=== PATIENT | male | born 1935 | race Caucasian/White ===

== ENCOUNTER 2017-06-20 10:08 | Observation (INO) ==
--- NOTE | 2017-06-20 10:31 | Emergency Department Note ---
Disposition Clinical Impression: Necrotic eschar Cellulitis Qualifiers: Site of cellulitis: unspecified site Qualified Code(s): L03.90 - Cellulitis, unspecified Disposition: Still a Patient Condition: Fair Time of Disposition: 11:10 Skin/Abscess/FB HPI Chief complaint: ED Skin/Abscess/Foreign Body Stated complaint: wound care Time Seen by Provider: 06/20/17 10:16 Source: patient, family Limitations: no limitations Nursing Notes Reviewed: Yes Vital Signs Reviewed: Yes HPI Narrative: Nontoxic-appearing 82-year-old male presents for evaluation of a wound to the right groin. The area began as a "small lump". It has since progressed into a bleeding ulceration with surrounding cellulitis. He has seen his primary care provider, and has recently finished a course of oral antibiotics. He states that the area has worsened in size and continues to bleed. He is on Coumadin for atrial fibrillation. He denies any associated nausea, vomiting, fever, chills, abdominal pain, urinary symptoms, or altered mentation. Pt Subjective Complaint: other Onset (ago): month(s) (2) Severity scale (1-10): 3 Quality: dull Improves with: none Worsens with: palpation Context: none Associated symptoms: Reports: denies other symptoms Treatments prior to arrival: antibiotic Home Medications Medication Instructions Recorded Confirmed Lansoprazole [Prevacid] 30 mg PO DAILY #0 01/17/16 06/20/17 Niacin [Niacor] 1,500 mg PO BID 01/17/16 06/20/17 Warfarin [Coumadin] 5 mg PO MOWE 01/17/16 06/20/17 Finasteride [Proscar] 5 mg PO DAILY 06/20/17 06/20/17 Warfarin [Coumadin] 2.5 mg PO SUTUTHFRSA 06/20/17 06/20/17 Previous Rx's Medication Instructions Recorded Aspirin 81 mg PO DAILY #30 tab.chew 08/16/15 Lisinopril [Zestril] 5 mg PO DAILY #30 tablet 08/16/15 Nitroglycerin 0.4 mg SL Q5MIN PRN #30 tab.subl 01/18/16 Allergies Allergy/AdvReac Type Severity Reaction Status Date / Time Penicillins Allergy Hives Verified 10/11/16 21:42 All systems ED: reviewed and negative except as stated. Constitutional: Denies: fever, chills, weakness, weight change Eyes: Denies: eye pain, eye discharge, vision change ENT ED: Denies: ear pain, throat pain, dental pain, hearing loss, epistaxis, congestion, dysphagia Cardiovascular: Denies: chest pain, palpitations, dyspnea on exertion, edema, syncope Respiratory: Denies: cough, dyspnea, wheezes, hemoptysis, stridor Gastrointestinal: Denies: abdominal pain, nausea, vomiting, diarrhea, constipation, hematemesis, melena, hematochezia Genitourinary: Denies: urgency, dysuria, frequency, hematuria Musculoskeletal: Denies: back pain, neck pain, arthralgia, myalgia Integumentary: Reports: as per HPI, other (bleeding wound near my groin). Denies: rash, abrasion, lesions Neurological: Denies: headache, weakness, numbness, paresthesias, confusion, abnormal gait, vertigo Psychiatric: Denies: anxiety, depression, suicidal thoughts, homicidal thoughts , auditory hallucinations, visual hallucinations Endocrine: Denies: fatigue Hematological/Lymphatic: Denies: easy bleeding, easy bruising Allergic/Immunologic: Denies: facial swelling, urticaria Past Medical History - Past Medical History Attestation: Yes The following information was validated with the patient. Source: patient, nursing notes reviewed Medical history: Reports: atrial fibrillation, coronary artery disease, GERD, hypertension, other Surgical history: Reports: angioplasty/stent, orthopedic, other, other Psychiatric history: Reports: no psych history - Social History Smoking Status: Never smoker Smokeless Tobacco Status: No Alcohol use: Reports: none Drug use: Reports: none Physical Exam - General Limitations: no limitations General appearance: alert - Head Head exam: atraumatic, normocephalic, normal inspection - Eye Eye exam: Present: normal appearance, PERRL, EOMI. Absent: nystagmus - ENT ENT exam: mucous membranes moist - Neck Neck exam: Present: normal inspection, full ROM, trachea midline - Chest Chest inspection: Present: normal inspection, symmetric chest wall rise - Abdominal Exam Abdominal exam: Present: soft, Non-Tender, normal bowel sounds - Male image: 1 - Approximate 2.5 cm by 2.0 centimeter ulceration with surrounding cellulitis. The area does persistently exsanguinate small amounts of blood. No appreciable underlying fluctuance. No purulent discharge or drainage. - Extremities Exam Extremities exam: Present: normal inspection, full ROM. Absent: tenderness, pedal edema - Neurological Exam Neurological exam: Present: alert, oriented X3 - Psychiatric Psychiatric exam: Present: normal affect, normal mood - Skin Skin exam: Present: warm, dry, normal color Course - Reevaluation(s) Reevaluation #1: Seen in the ED by Dr. Willoughby and he requests the patient be admitted to the hospitalist service, IV antibiotics, reversal of the INR and ultimately will take to surgery for debridement. Time: 14:10 Reevaluation #2: D/W Hospitalist to admit Time: 15:20 Vital Signs Temperature 97.5 F L 06/20/17 10:11 Pulse Rate 84 06/20/17 10:11 Respiratory Rate 18 06/20/17 10:11 Blood Pressure 147/80 06/20/17 10:11 O2 Sat by Pulse Oximetry 99 06/20/17 10:11 Temperature 97.8 F 06/20/17 16:35 Pulse Rate 84 06/20/17 16:35 Respiratory Rate 14 06/20/17 16:35 Blood Pressure 144/87 06/20/17 16:35 O2 Sat by Pulse Oximetry 99 06/20/17 16:35 Oxygen Delivery Oxygen Delivery Room Air Skin/Abscess/Foreign Body - Medical Records Medical records reviewed: Yes I reviewed the patient's medical records. - Lab Data Result diagrams: 06/20/17 10:40 06/20/17 10:40 Lab Results 06/20/17 06/20/17 06/20/17 Range/Units 10:40 10:40 10:40 WBC 9.0 (4.3-11.1) K/mcL RBC 4.06 L (4.19-5.50) M/mcL Hgb 12.7 L (12.9-16.9) g/dL Hct 38.4 (37.5-50.1) % MCV 94.6 (83.0-100.0) fL MCH 31.3 (28.0-33.3) pg MCHC 33.1 (31.6-35.5) g/dL RDW 15.1 H (11.5-14.5) % Plt Count 168 (140-400) K/mcL MPV 9.2 L (9.4-12.4) fL Immature Gran % 0.6 (0-4) % Seg Neutrophils % 57.4 % Lymphocytes % 34.8 % Monocytes % 5.8 % Eosinophils % 1.1 % Basophils % 0.3 % Neutrophils # 5.2 (1.6-8.9) K/mcL Lymphocytes # 3.1 (0.6-4.6) K/mcL Monocytes # 0.5 (0.0-1.3) K/mcL Eosinophils # 0.1 (0.0-0.6) K/mcL Basophils # 0.0 (0.0-0.2) K/mcL ESR 13 H (0-10) mm/hr PT (9.4-12.1) Seconds INR Sodium 132 L (136-145) mEq/L Potassium 4.0 (3.5-5.1) mEq/L Chloride 98 (98-107) mEq/L Carbon Dioxide 26 (23-29) mEq/L BUN 8 (8-23) mg/dL Creatinine 0.85 (0.70-1.30) mg/dL Est GFR ( Amer) > 60 (> 60) Est GFR (Non-Af Amer) > 60 (> 60) BUN/Creatinine Ratio 9 (6-26) Glucose 128 H (70-105) mg/dL Calculated Osmolality 274 L (280-300) Calcium 9.6 (8.6-10.3) mg/dL C-Reactive Protein 10 H (Less than 10) mg/L 06/20/17 Range/Units 10:40 WBC (4.3-11.1) K/mcL RBC (4.19-5.50) M/mcL Hgb (12.9-16.9) g/dL Hct (37.5-50.1) % MCV (83.0-100.0) fL MCH (28.0-33.3) pg MCHC (31.6-35.5) g/dL RDW (11.5-14.5) % Plt Count (140-400) K/mcL MPV (9.4-12.4) fL Immature Gran % (0-4) % Seg Neutrophils % % Lymphocytes % % Monocytes % % Eosinophils % % Basophils % % Neutrophils # (1.6-8.9) K/mcL Lymphocytes # (0.6-4.6) K/mcL Monocytes # (0.0-1.3) K/mcL Eosinophils # (0.0-0.6) K/mcL Basophils # (0.0-0.2) K/mcL ESR (0-10) mm/hr PT 45.9 H* (9.4-12.1) Seconds INR 4.1 Sodium (136-145) mEq/L Potassium (3.5-5.1) mEq/L Chloride (98-107) mEq/L Carbon Dioxide (23-29) mEq/L BUN (8-23) mg/dL Creatinine (0.70-1.30) mg/dL Est GFR ( Amer) (> 60) Est GFR (Non-Af Amer) (> 60) BUN/Creatinine Ratio (6-26) Glucose (70-105) mg/dL Calculated Osmolality (280-300) Calcium (8.6-10.3) mg/dL C-Reactive Protein (Less than 10) mg/L S.B.A.R. - S.B.A.R. Situation: Demographics, MOA Background: Presenting Complaint, Relevant PMH, Meds, & Allergies Assessment: Vital Signs, Course and respsone to treatment, Exam Concerns, Patient/Family Expectation, Pertinant Lab Results, Outstanding Labs Recommendation: Barrier(s) to disposition, Recommendation based on pending studies, treatments, or consults S.B.A.RLuiz Report Given to: Dr. Hendrickson SLuizBLuizABronson [facility] Time: 11:10 Attestation Statement - Attestation Attestation: I examined this patient and my medical decision-making was reviewed with the Nurse Practitioner. I agree with the documented findings, disposition and treatment plan as described except to the extent set forth below. 82-year-old male presents ED because of a lesion to his right groin. He has noticed this over the past 2 months and has been getting gradually bigger. He was recently put on a course of antibiotics per his primary care physician which she finished in the past 2 days without improvement. He is now more concerned that it may be cancer. He does have some pain in the region. No fevers. No flank or back pain. No urinary has not seen. No rectal pain. He is afebrile Abdomen soft and non-tender In the right pubic region there is a 2 cm x 3 cm skin lesion that has some small amount of active bleeding. Tissue appears to be necrotic. No palpable fluctuance. Mild tenderness to the inferior aspect of the lesion. CT imaging is negative for any deep tissue involvement. Labs unremarkable except for an INR 4.1. Discussed with Dr. Willoughby regarding the possible need for outpatient follow-up and debridement as well as possible biopsy. He will see him in the ED.
[2017-06-20 11:07] LABS: Basophils % 0.3 %; Eosinophils # 0.1 K/mcL (0.0-0.6); Eosinophils % 1.1 %; Hematocrit 38.4 % (37.5-50.1); Hemoglobin 12.7 g/dL (12.9-16.9); Immature Granulocytes % 0.6 % (0-4); Lymphocytes # 3.1 K/mcL (0.6-4.6); Lymphocytes % 34.8 %; Mean Corpuscular HGB Conc 33.1 g/dL (31.6-35.5); Mean Corpuscular Hemoglobin 31.3 pg (28.0-33.3); Mean Corpuscular Volume 94.6 fL (83.0-100.0); Mean Platelet Volume 9.2 fL (9.4-12.4); Monocytes # 0.5 K/mcL (0.0-1.3); Monocytes % 5.8 %; Neutrophils # 5.2 K/mcL (1.6-8.9); Platelet Count 168 K/mcL (140-400); Red Blood Count 4.06 M/mcL (4.19-5.50); Red Cell Distribution Width 15.1 % (11.5-14.5); Segmented Neutrophils % 57.4 %
[2017-06-20 11:22] LABS: BUN/Creatinine Ratio 9 (6-26); Blood Urea Nitrogen 8 mg/dL (8-23); C-Reactive Protein 10 mg/L (Less than 10); Calcium 9.6 mg/dL (8.6-10.3); Carbon Dioxide 26 mEq/L (23-29); Chloride 98 mEq/L (98-107); Glucose 128 mg/dL (70-105); Osmolality,Calculated 274 (280-300); Sodium 132 mEq/L (136-145); eGFR For African Americans > 60 (> 60); eGFR For Non-African Americans > 60 (> 60)
[2017-06-20 13:12] LABS: INR 4.1
[2017-06-20 13:20] LABS: Prothrombin Time 45.9 Seconds (9.4-12.1)
[2017-06-20] MEDS ORDERED: Clindamycin 600 MG/50 ML 600 MG/50 ML IV.SOLN IVPB ONE (14:10)
--- NOTE | 2017-06-20 16:53 | Internal Med History&Physical ---
Date of Encounter: 06/20/17 Time of Encounter: 16:51 Assessment and Plan (1) Anticoagulation excessive Current visit: Yes Status: Acute Patient is 4.1 l patient will be given Coumadin and fresh frozen plasma (2) HTN (hypertension) Current visit: No Status: Chronic Chronic well controlled Qualifiers: Hypertension type: essential hypertension Qualified Code(s): I10 - Essential (primary) hypertension (3) Atrial fibrillation Current visit: No Status: Chronic Chronic rate is well controlled patient is on Coumadin Qualifiers: Atrial fibrillation type: chronic Qualified Code(s): I48.2 - Chronic atrial fibrillation (4) Cellulitis Current visit: Yes Status: Acute Cellulitis of right groin area with necrotic area general general surgery consult Qualifiers: Site of cellulitis: unspecified site Qualified Code(s): L03.90 - Cellulitis , unspecified (5) HTN (hypertension) Current visit: Yes Status: Chronic Qualifiers: Hypertension type: essential hypertension Qualified Code(s): I10 - Essential (primary) hypertension Internal Medicine - H&P: HPI Chief complaint: right groin cellulitis Admitted From: Emergency Dept Plans for Post Hospital Care: Home History of present illness: Mr. Landry is a 82 year old male Patient with history of hypertension, chronic atrial fibrillation on Coumadin, CAD prior stent, high cholesterol, DJD, GERD, Caldwell esophagus and diastolic heart failure and TIA. Patient presented emergency room with right groin wound which is ulcerated necrotic with surrounding cellulitis patient had outpatient treatment with a course of antibiotics by primary physician but getting worse and continued to bleed and he come into the emergency room. Emergency room hemostasis was achieved and dressing applied general surgery Dr. Courtney has been consulted patient will be placed on antibiotic and given vitamin K and fresh frozen plasma and possible OR tomorrow. Past Med Surg Social Fam HX - Past Medical History Medical history: atrial fibrillation, coronary artery disease, GERD, hypertension, other Psychiatric history: no psych history - Past Surgical History Surgical History: angioplasty/stent, orthopedic, other, other - Social History Smoking Status: Former smoker Smokeless Tobacco Status: No Alcohol use: none Drug use: none - Family History Mother Living Status: Hx Family Cardiac Disorders: Yes (CHF) Father Living Status: Internal Medicine - H&P: Meds Aspirin 81 mg PO DAILY #30 tab.chew 04/14/16 [Rx] Lisinopril [Zestril] 5 mg PO DAILY #30 tablet 08/16/15 [Rx] Lansoprazole [Prevacid] 30 mg PO DAILY #0 01/17/16 [History] Niacin [Niacor] 1,500 mg PO BID 01/17/16 [History] Warfarin [Coumadin] 5 mg PO MOWE 01/17/16 [History] Nitroglycerin 0.4 mg SL Q5MIN PRN #30 tab.subl 01/18/16 [Rx] Finasteride [Proscar] 5 mg PO DAILY 06/20/17 [History] Warfarin [Coumadin] 2.5 mg PO SUTUTHFRSA 06/20/17 [History] 3 Allergy/AdvReac Type Severity Reaction Status Date / Time Penicillins Allergy Hives Verified 10/11/16 21:42 All Systems PM: A 10-system review of systems was performed and is negative for pertinent findings except as documented above in the HPI. - Constitutional Constitutional: no chills, no fever(s), no night sweats - EENT Eyes: no change in vision, no discharge, no pain, no photophobia Ears: no ear discharge, no ear pain, no tinnitus Nose, mouth and throat: no dysphagia, no nasal discharge, no neck pain, no sore throat - Cardiovascular Cardiovascular ROS IM: no chest pain, no diaphoresis, no dyspnea, no lightheadedness, no palpitations, no syncope - Respiratory Respiratory: no cough, no dyspnea, no wheezing, no excessive phlegm production - Gastrointestinal Gastrointestinal: no abdominal pain, no diarrhea, no hematemesis, no hematochezia, no melena, no nausea, no vomiting - Constitutional Vitals: Temp Pulse Resp BP Pulse Ox 97.8 F 84 14 144/87 99 06/20/17 16:35 06/20/17 16:35 06/20/17 16:35 06/20/17 16:35 06/20/17 16:35 - Head Head exam: Present: atraumatic, normocephalic - Eye Eye exam: Present: PERRL, conjuntiva pink, sclera anicteric Pupils: Present: PERRL - Neck Neck exam general surgery: Present: supple, trachea midline. Absent: lymphadenopathy - Respiratory Respiratory exam: Present: CTAB. Absent: accessory muscle use, rales, rhonchi, wheezes - Cardiovascular Cardiovascular exam: Present: RRR, +S1, +S2. Absent: diastolic murmur, gallop, rubs, systolic murmur - GI/Abdominal GI/Abdominal exam: Present: normal bowel sounds, soft, no peritoneal signs. Absent: distended, tenderness - Skin Additional comments: right groin cellulitis with necrotic area and bleeding Internal Med - H&P Results - Labs CBC & Chem 7: 06/20/17 10:40 06/20/17 10:40
[2017-06-20] MEDS ORDERED: Naloxone 0.4 MG/ML INJ IVP PRN (17:01)
[2017-06-20] MEDS ORDERED: Nitroglycerin 0.4 MG TAB.SUBL SL PRN (17:03)
--- NOTE | 2017-06-20 17:25 | General Surgery Consult Note ---
<DanilopatSocorro pascla H - Last Filed: 06/20/17 17:20> Date of Encounter: 06/20/17 Time of Encounter: 16:00 Assessment and Plan (1) Wound of right groin Current Visit: Yes Status: Acute Patient with a wound to his right groin. -Admit to the hospitalist for management of multiple medical comorbidities. -IV antibiotics. Penicillin allergy. Will use clindamycin. -Recommend reversal of Coumadin (INR is 4.1) with 2 units of fresh frozen plasma and 10 mg of vitamin K. -Patient to be made nothing by mouth at midnight. -Possibly to the OR tomorrow for debridement. Qualifiers: Encounter type: initial encounter Qualified Code(s): S31.109A - Unspecified open wound of abdominal wall, unspecified quadrant without penetration into peritoneal cavity, initial encounter (2) Cellulitis Current Visit: Yes Status: Acute Patient getting IV antibiotic coverage with clindamycin as he has a penicillin allergy. Qualifiers: Site of cellulitis: unspecified site Qualified Code(s): L03.90 - Cellulitis , unspecified History of Present Illness Consult date: 06/20/17 Reason for consult: wound care Requesting physician: Maxi Hendrickson History of present illness: Mr. Woodruff is an 82-year-old male with past medical history hypertension, chronic atrial fibrillation on Coumadin, CAD SP stent, HLD, GERD, Caldwell's esophagus, and diastolic heart failure. Patient presented to a [facility] on 06/20/2017 with a wound in his right groin area. Patient states this wound began in February or March of 2017. He states it progressed since that time. He saw his outpatient primary care provider Dr. Dorantes who debrided it in the office and gave him 10 days of oral antibiotics. He states the wound did not improve. The patient states the central area of the wound which appeared to him as a scab possibly started 2 weeks ago. He states this area is very tender. He denies any fevers, chills, or night sweats. He denies any chest pain, shortness of breath, diaphoresis, or nausea. He denies any nausea, vomiting, or diarrhea. Denies any dysuria or hematuria. Past Med Surg Social Fam HX - Past Medical History Source: patient, old records reviewed, obtained from family Medical history: atrial fibrillation, coronary artery disease, GERD, hypertension, other Psychiatric history: no psych history - Past Surgical History Surgical History: angioplasty/stent, orthopedic, other, other - Social History Smoking Status: Former smoker Smokeless Tobacco Status: No Alcohol use: none Drug use: none - Family History Mother Living Status: Hx Family Cardiac Disorders: Yes (CHF) Father Living Status: Medications and Allergies Aspirin 81 mg PO DAILY #30 tab.chew 08/16/15 [Rx] Lisinopril [Zestril] 5 mg PO DAILY #30 tablet 08/16/15 [Rx] Lansoprazole [Prevacid] 30 mg PO DAILY #0 01/17/16 [History] Niacin [Niacor] 1,500 mg PO BID 01/17/16 [History] Warfarin [Coumadin] 5 mg PO MOWE 01/17/16 [History] Nitroglycerin 0.4 mg SL Q5MIN PRN #30 tab.subl 01/18/16 [Rx] Finasteride [Proscar] 5 mg PO DAILY 06/20/17 [History] Warfarin [Coumadin] 2.5 mg PO SUTUTHFRSA 06/20/17 [History] 3 Allergy/AdvReac Type Severity Reaction Status Date / Time Penicillins Allergy Hives Verified 10/11/16 21:42 Review of Systems All systems PM: reviewed and no additional remarkable complaints except as stated All systems PM: A 10-system review of systems was performed and is negative for pertinent findings except as documented above in the HPI. - Constitutional as per HPI - Cardiovascular as per HPI - Respiratory as per HPI - Gastrointestinal as per HPI - Genitourinary as per HPI General Surgery Exam Initial Vital Signs Temp Pulse Resp BP Pulse Ox 97.5 F L 84 18 147/80 99 06/20/17 10:11 06/20/17 10:11 06/20/17 10:11 06/20/17 10:11 06/20/17 10:11 - General physical appearance well developed, no distress - Eyes PERRL, normal ocular movement - Respiratory normal expansion, normal respiratory effort, clear to percussion, clear to auscultation - Cardiovascular Cardiovascular exam: Present: RRR, no murmurs/rubs/gallops - Abdomen Abdomen general surgery: Present: bowel sounds present, soft, non tender. Absent: guarding, rebound - Integumentary Integumentary general surgery: Present: warm and dry, other (Patient with an approximately 3 cm x 2 cm oblong wound in his right groin area. This is located on the anterior aspect of his pelvis about 4 inches superior to his penis. The wound appears well circumscribed and granulated. There is an area of central necrosis which is oozing blood. No purulence or drainage visualized. There is surrounding erythema. No crepitance, fluctuance, or induration.) Exam Initial Vital Signs Temp Pulse Resp BP Pulse Ox 97.5 F L 84 18 147/80 99 06/20/17 10:11 06/20/17 10:11 06/20/17 10:11 06/20/17 10:11 06/20/17 10:11 Results - Labs 06/20/17 10:40 06/20/17 10:40 Abnormal lab results RBC 4.06 M/mcL (4.19-5.50) L 06/20/17 10:40 Hgb 12.7 g/dL (12.9-16.9) L 06/20/17 10:40 RDW 15.1 % (11.5-14.5) H 06/20/17 10:40 MPV 9.2 fL (9.4-12.4) L 06/20/17 10:40 ESR 13 mm/hr (0-10) H 06/20/17 10:40 PT 45.9 Seconds (9.4-12.1) H* 06/20/17 10:40 Sodium 132 mEq/L (136-145) L 06/20/17 10:40 Glucose 128 mg/dL (70-105) H 06/20/17 10:40 Calculated Osmolality 274 (280-300) L 06/20/17 10:40 C-Reactive Protein 10 mg/L (Less than 10) H 06/20/17 10:40 All other labs normal. Consult Discharge Plan - Plan Referrals: Zeke Dorantes Jr, MD [Primary Care Provider] - <Jeremy Willoughby - Last Filed: 06/20/17 19:35> Date of Encounter: 06/20/17 Review of Systems All systems PM: A 10-system review of systems was performed and is negative for pertinent findings except as documented above in the HPI. General Surgery Exam Initial Vital Signs Temp Pulse Resp BP Pulse Ox 97.5 F L 84 18 147/80 99 06/20/17 10:11 06/20/17 10:11 06/20/17 10:11 06/20/17 10:11 06/20/17 10:11 Exam Initial Vital Signs Temp Pulse Resp BP Pulse Ox 97.5 F L 84 18 147/80 99 06/20/17 10:11 06/20/17 10:11 06/20/17 10:11 06/20/17 10:11 06/20/17 10:11 Results - Labs 06/20/17 10:40 06/20/17 10:40 Abnormal lab results RBC 4.06 M/mcL (4.19-5.50) L 06/20/17 10:40 Hgb 12.7 g/dL (12.9-16.9) L 06/20/17 10:40 RDW 15.1 % (11.5-14.5) H 06/20/17 10:40 MPV 9.2 fL (9.4-12.4) L 06/20/17 10:40 ESR 13 mm/hr (0-10) H 06/20/17 10:40 PT 45.9 Seconds (9.4-12.1) H* 06/20/17 10:40 Sodium 132 mEq/L (136-145) L 06/20/17 10:40 Glucose 128 mg/dL (70-105) H 06/20/17 10:40 Calculated Osmolality 274 (280-300) L 06/20/17 10:40 C-Reactive Protein 10 mg/L (Less than 10) H 06/20/17 10:40 All other labs normal. - Attending Attestation patient seen and examined. All notes, imaging, and labs were reviewed by me. I agree with the above assessment and plan and wish to add the following... 82M with a peculiar story but sounds as if he developed a wound that may have started as a 'pimple' that had attempted debridement by his PCP. Currently he has necrotic skin overlying what looks like a hematoma; will reverse patient's INR prior to debridement.
[2017-06-20] MEDS: 0.9 % Sodium Chloride 250 ML IVC SCH (18:10)
[2017-06-20] MEDS: NIACIN 1500 MG PO SCH (20:50)
[2017-06-20] MEDS: traMADol 50 MG TABLET PO PRN (22:36)
[2017-06-21] MEDS: Clindamycin 600 MG/50 ML 600 MG/50 ML IV.SOLN IVPB SCH ×3 (04:12→21:47)
[2017-06-21] MEDS: 0.9 % Sodium Chloride 250 ML IVC SCH (04:13)
[2017-06-21 06:02] LABS: Basophils % 0.3 %; Eosinophils # 0.2 K/mcL (0.0-0.6); Eosinophils % 2.4 %; Hemoglobin 11.3 g/dL (12.9-16.9); Immature Granulocytes % 0.3 % (0-4); Lymphocytes # 2.7 K/mcL (0.6-4.6); Lymphocytes % 40.3 %; Mean Corpuscular HGB Conc 33.2 g/dL (31.6-35.5); Mean Corpuscular Hemoglobin 31.1 pg (28.0-33.3); Mean Corpuscular Volume 93.7 fL (83.0-100.0); Mean Platelet Volume 9.2 fL (9.4-12.4); Monocytes # 0.4 K/mcL (0.0-1.3); Monocytes % 6.3 %; Neutrophils # 3.4 K/mcL (1.6-8.9); Platelet Count 140 K/mcL (140-400); Red Blood Count 3.63 M/mcL (4.19-5.50); Segmented Neutrophils % 50.4 %
[2017-06-21 06:23] LABS: Alanine Aminotransferase 13 Units/L (7-52); Albumin 3.7 g/dL (3.5-5.7); Albumin/Globulin Ratio 1.5 (1.1-2.2); Alkaline Phosphatase 77 Units/L (34-104); Aspartate Amino Transferase 22 Units/L (13-39); BUN/Creatinine Ratio 11 (6-26); Bilirubin,Total 0.8 mg/dL (0.3-1.0); Blood Urea Nitrogen 10 mg/dL (8-23); Calcium 9.6 mg/dL (8.6-10.3); Carbon Dioxide 31 mEq/L (23-29); Chloride 100 mEq/L (98-107); Globulin 2.5 g/dL (2.4-3.5); Glucose 96 mg/dL (70-105); Magnesium 1.7 mg/dL (1.6-2.6); Osmolality,Calculated 279 (280-300); Potassium 4.2 mEq/L (3.5-5.1); Sodium 135 mEq/L (136-145); Total Protein 6.2 g/dL (6.4-8.9); eGFR For African Americans > 60 (> 60); eGFR For Non-African Americans > 60 (> 60)
[2017-06-21] MEDS ORDERED: Aspirin 81 MG TAB.CHEW PO SCH (09:00)
[2017-06-21] MEDS ORDERED: Finasteride 5 MG TABLET PO SCH (09:00)
[2017-06-21 09:50] LABS: Prothrombin Time 14.9 Seconds (9.4-12.1)
[2017-06-21 09:51] LABS: INR 1.4
[2017-06-21] MEDS: traMADol 50 MG TABLET PO PRN (09:57)
[2017-06-21] MEDS: NIACIN 1500 MG PO SCH ×2 (10:00→21:00)
--- NOTE | 2017-06-21 11:36 | Internal Med Progress Note ---
Date of Encounter: 06/21/17 Time of Encounter: 11:33 - Assessment and plan (1) Cellulitis Current Visit: Yes Status: Acute Assessment and plan: patient is afebrile, normal WBC, continue clindamycin, CT result reviewed OR today per surgery Qualifiers: Site of cellulitis: trunk Site of cellulitis of trunk: groin Qualified Code(s): L03.314 - Cellulitis of groin (2) Atrial fibrillation Current Visit: Yes Status: Chronic Assessment and plan: HR well controlled, hold coumadin for surgery Qualifiers: Atrial fibrillation type: chronic Qualified Code(s): I48.2 - Chronic atrial fibrillation (3) Anticoagulation excessive Current Visit: Yes Status: Acute Assessment and plan: INR down to 1.4 now (4) HTN (hypertension) Current Visit: Yes Status: Chronic Assessment and plan: continue home meds Qualifiers: Hypertension type: essential hypertension Qualified Code(s): I10 - Essential (primary) hypertension - Time Spent With Patient 25 - 35 minutes - Subjective Interval history: Mr. Woodruff is an 82-year-old male with past medical history hypertension, chronic atrial fibrillation on Coumadin, CAD SP stent, HLD, GERD, Caldwell's esophagus, and diastolic heart failure. Patient presented to a [facility] on 06/20/2017 with a wound in his right groin area. Patient states this wound began in February or March of 2017. He states it progressed since that time. He saw his outpatient primary care provider Dr. Dorantes who debrided it in the office and gave him 10 days of oral antibiotics. He states the wound did not improve. The patient states the central area of the wound which appeared to him as a scab possibly started 2 weeks ago. He states this area is very tender. CT was done on 06/20 did not show abscess or gas surgery was consulted, OR today INR 1.4 - Constitutional Vitals: Temp Pulse Resp BP Pulse Ox 97.8 F 67 16 142/80 98 06/21/17 06:47 06/21/17 06:47 06/21/17 06:47 06/21/17 06:47 06/21/17 06:47 General appearance: Present: A&O X 3, pleasant, no acute distress Exam: CONSTITUTIONAL: patient appears as an age appropriate male in no acute distress. EYES Clear sclerae, bilateral pupils are equal, reactive to light. EMOI. RESPIRATORY: No accessory muscle use, bilateral clear to auscultation, no wheezing, no crackles/rales. CARDIOVASCULAR: Regular heart rate, normal S1 and S2, no murmurs GASTROINTESTINAL: bowel sounds present, soft, no tenderness. MUSCULOSKELETAL: Joints in normal range of motion, no clubbing, no edema, no cyanosis. Bilateral peripheral pulses 2+. NEUROLOGIC: CN II to XII are grossly intact, no focal neurological deficit. Internal Medicine: Result - Labs CBC & Chem 7: 06/21/17 05:13 06/21/17 05:13 Labs: Short CBC 06/21/17 Range/Units 05:13 WBC 6.7 (4.3-11.1) K/mcL Hgb 11.3 L (12.9-16.9) g/dL Hct 34.0 L (37.5-50.1) % Plt Count 140 (140-400) K/mcL Neutrophils # 3.4 (1.6-8.9) K/mcL BMP 06/21/17 05:13 Sodium 135 L Potassium 4.2 Chloride 100 Carbon Dioxide 31 H BUN 10 Creatinine 0.92 Glucose 96 Calcium 9.6 Liver Function 06/21/17 Range/Units 05:13 Total Bilirubin 0.8 (0.3-1.0) mg/dL AST 22 (13-39) Units/L ALT 13 (7-52) Units/L Alkaline Phosphatase 77 (34-104) Units/L Albumin 3.7 (3.5-5.7) g/dL - ABG Interpretation ABG results: PT/INR, D-dimer PT 14.9 Seconds (9.4-12.1) H D 06/21/17 09:35 Consult Discharge Plan - Plan Referrals: Zeke Dorantes Jr, MD [Primary Care Provider] -
[2017-06-21] MEDS ORDERED: *HR* OxyCODONE Immed Rel 5 MG TABLET PO PRN ×2 (12:21→15:16)
--- NOTE | 2017-06-21 12:28 | General Surgery Progress Note ---
Date of Encounter: 06/21/17 Time of Encounter: 12:26 - Assessment and Plan (1) Necrotic eschar Current Visit: Yes Status: Acute 82M with necrotic wound in R groin; to OR today for excisional debridement Subjective Patient reports: no new complaints, still having pain, afebrile Objective Vital Signs - Last 8 Hours Temp Pulse Resp BP Pulse Ox 06/21/17 10:30 97.8 F 108 16 154/81 97 06/21/17 06:47 97.8 F 67 16 142/80 98 06/21/17 04:38 98.0 F 67 17 155/82 97 Intake and Output 06/20/17 06/21/17 06/21/17 23:59 07:59 15:59 Intake Total 590 / 640 650 / 650 0 / 0 Output Total 950 / 950 400 / 400 325 / 325 Balance -360 / -310 250 / 250 -325 / -325 Intake: IV Fluids 300 / 300 0.9 % Sodium Chloride 250 ML @ 250 / 250 25 mls/hr IVC .Q10H [facility] Rx#: [id number] Cleocin Premix 600 MG/50 ML 600 50 / 50 mg In 50 ml @ 50 mls/hr IVPB Q8HR [facility] Rx#:[id number] Oral 240 / 240 0 / 0 0 / 0 Blood Product 350 / 350 350 / 350 Plasma Unit [id number] 350 / 350 Plasma Unit [id number] 350 / 350 Output: Urine 950 / 950 400 / 400 325 / 325 Other: Meal Dinner NPO Percent of Meal Consumed 100% Weight 63.8 kg - General physical appearance no distress - Respiratory normal expansion, normal respiratory effort - Cardiovascular Cardiovascular exam: Present: RRR - Abdomen Abdomen: Present: soft - Incision Incision: Present: open (wound wiht necrotic skin, possible hematoma) - Neurologic CN 2-12 grossly intact - Labs 06/21/17 05:13 06/21/17 05:13 Diabetes panel 06/21/17 Range/Units 05:13 Sodium 135 L (136-145) mEq/L Potassium 4.2 (3.5-5.1) mEq/L Chloride 100 (98-107) mEq/L Carbon Dioxide 31 H (23-29) mEq/L BUN 10 (8-23) mg/dL Creatinine 0.92 (0.70-1.30) mg/dL Glucose 96 (70-105) mg/dL Calcium 9.6 (8.6-10.3) mg/dL AST 22 (13-39) Units/L ALT 13 (7-52) Units/L Alkaline Phosphatase 77 (34-104) Units/L Albumin 3.7 (3.5-5.7) g/dL Calcium panel 06/21/17 Range/Units 05:13 Calcium 9.6 (8.6-10.3) mg/dL Albumin 3.7 (3.5-5.7) g/dL Pituitary panel 06/21/17 Range/Units 05:13 Sodium 135 L (136-145) mEq/L Potassium 4.2 (3.5-5.1) mEq/L Chloride 100 (98-107) mEq/L Carbon Dioxide 31 H (23-29) mEq/L BUN 10 (8-23) mg/dL Creatinine 0.92 (0.70-1.30) mg/dL Glucose 96 (70-105) mg/dL Calcium 9.6 (8.6-10.3) mg/dL Adrenal panel 06/21/17 Range/Units 05:13 Sodium 135 L (136-145) mEq/L Potassium 4.2 (3.5-5.1) mEq/L Chloride 100 (98-107) mEq/L Carbon Dioxide 31 H (23-29) mEq/L BUN 10 (8-23) mg/dL Creatinine 0.92 (0.70-1.30) mg/dL Glucose 96 (70-105) mg/dL Calcium 9.6 (8.6-10.3) mg/dL Total Bilirubin 0.8 (0.3-1.0) mg/dL AST 22 (13-39) Units/L ALT 13 (7-52) Units/L Alkaline Phosphatase 77 (34-104) Units/L Albumin 3.7 (3.5-5.7) g/dL Consult Discharge Plan - Plan Referrals: Zeke Doarntes Jr, MD [Primary Care Provider] -
[2017-06-21] MEDS ORDERED: *HR* FentaNYL (PF) 100 MCG/2 ML VIAL ONE (13:15)
[2017-06-21] MEDS ORDERED: Lidocaine -MPF 2% 2 ML VIAL ONE (13:15)
[2017-06-21] MEDS ORDERED: *HR* Propofol 200 MG/20 ML VIAL IVP ONE (13:15)
[2017-06-21] MEDS ORDERED: Dexamethasone 4 MG/ML VIAL ONE (13:17)
[2017-06-21] MEDS ORDERED: Ondansetron 4 MG/2 ML VIAL ONE (13:17)
[2017-06-21] MEDS ORDERED: Metoclopramide 10 MG/2 ML VIAL ONE (13:25)
[2017-06-21] MEDS ORDERED: Acetaminophen IV 1,000 MG/100 ML INFUS..BTL ONE (13:25)
[2017-06-21] MEDS ORDERED: Famotidine 20 MG/2 ML VIAL ONE (13:26)
--- NOTE | 2017-06-21 13:32 | Anesthesia Evaluation PreOp ---
Date of Encounter: 06/21/17 Time of Encounter: 13:30 - Past History Planned Operation: I&D R-groin abcess Cardiac History: CHF (diastolic heart failure), HTN (maintained on Lisinopril), Hyperlipidemia (maintained on Niacin), Arrhythmia (AFIB chronically anticoagulated on Coumadin, admitted with INR = 4.1 with interval administration of FFP this hospitalization), Cardiac Stent (stent x ? maintained on ASA), Other (ECHO 03/12/2016 -Impressions: Normal size and function. LVEF 60%. The right ventricle was normal in size and systolic function. Severely dilated left atrium. Prolapse of the posterior MV leaflet; P2 scallop. Mild-moderate mitral regurgitation. RVSP not well obtained due to lack of tricuspid regurgitation. Left Ventricular Wall Motion: Transesophageal Echo Findings All wall segments showed normal motion.) Pulmonary History: Former smoker DATA MANAGEMENT History: TIA Other Medical History: GERD (Caldwell's esophagus), Other (R-groin cellulitis with necrotic area this hospitalization. BPH maintained on Proscar) Anesthesia History: No Prior Anesthetic Complications, Past Anesthesia Alcohol Use: none Drug use: none Medications and Allergies Aspirin 81 mg PO DAILY #30 tab.chew 08/16/15 [Rx] Lisinopril [Zestril] 5 mg PO DAILY #30 tablet 08/16/15 [Rx] Lansoprazole [Prevacid] 30 mg PO DAILY #0 01/17/16 [History] Niacin [Niacor] 1,500 mg PO BID 01/17/16 [History] Warfarin [Coumadin] 5 mg PO MOWE 01/17/16 [History] Nitroglycerin 0.4 mg SL Q5MIN PRN #30 tab.subl 01/18/16 [Rx] Finasteride [Proscar] 5 mg PO DAILY 06/20/17 [History] Warfarin [Coumadin] 2.5 mg PO SUTUTHFRSA 06/20/17 [History] 3 Allergy/AdvReac Type Severity Reaction Status Date / Time Penicillins Allergy Hives Verified 10/11/16 21:42 - Meds/Allergy Pre-op Review Medications Reviewed: Yes Allergies Reviewed: Yes Beta Blockers on Current Med List: No Anesthesia Results - Labs 06/21/17 05:13 06/21/17 05:13 Laboratory Results WBC 6.7 K/mcL (4.3-11.1) 06/21/17 05:13 RBC 3.63 M/mcL (4.19-5.50) L 06/21/17 05:13 Hgb 11.3 g/dL (12.9-16.9) L 06/21/17 05:13 Hct 34.0 % (37.5-50.1) L 06/21/17 05:13 MCV 93.7 fL (83.0-100.0) 06/21/17 05:13 MCH 31.1 pg (28.0-33.3) 06/21/17 05:13 MCHC 33.2 g/dL (31.6-35.5) 06/21/17 05:13 RDW 15.0 % (11.5-14.5) H 06/21/17 05:13 Plt Count 140 K/mcL (140-400) 06/21/17 05:13 MPV 9.2 fL (9.4-12.4) L 06/21/17 05:13 Immature Gran % 0.3 % (0-4) 06/21/17 05:13 Seg Neutrophils % 50.4 % 06/21/17 05:13 Lymphocytes % 40.3 % 06/21/17 05:13 Monocytes % 6.3 % 06/21/17 05:13 Eosinophils % 2.4 % 06/21/17 05:13 Basophils % 0.3 % 06/21/17 05:13 Neutrophils # 3.4 K/mcL (1.6-8.9) 06/21/17 05:13 Lymphocytes # 2.7 K/mcL (0.6-4.6) 06/21/17 05:13 Monocytes # 0.4 K/mcL (0.0-1.3) 06/21/17 05:13 Eosinophils # 0.2 K/mcL (0.0-0.6) 06/21/17 05:13 Basophils # 0.0 K/mcL (0.0-0.2) 06/21/17 05:13 ESR 13 mm/hr (0-10) H 06/20/17 10:40 PT 14.9 Seconds (9.4-12.1) H D 06/21/17 09:35 INR 1.4 D 06/21/17 09:35 Sodium 135 mEq/L (136-145) L 06/21/17 05:13 Potassium 4.2 mEq/L (3.5-5.1) 06/21/17 05:13 Chloride 100 mEq/L (98-107) 06/21/17 05:13 Carbon Dioxide 31 mEq/L (23-29) H 06/21/17 05:13 BUN 10 mg/dL (8-23) 06/21/17 05:13 Creatinine 0.92 mg/dL (0.70-1.30) 06/21/17 05:13 Est GFR ( Amer) > 60 (> 60) 06/21/17 05:13 Est GFR (Non-Af Amer) > 60 (> 60) 06/21/17 05:13 BUN/Creatinine Ratio 11 (6-26) 06/21/17 05:13 Glucose 96 mg/dL (70-105) 06/21/17 05:13 Calculated Osmolality 279 (280-300) L 06/21/17 05:13 Calcium 9.6 mg/dL (8.6-10.3) 06/21/17 05:13 Magnesium 1.7 mg/dL (1.6-2.6) 06/21/17 05:13 Total Bilirubin 0.8 mg/dL (0.3-1.0) 06/21/17 05:13 AST 22 Units/L (13-39) 06/21/17 05:13 ALT 13 Units/L (7-52) 06/21/17 05:13 Alkaline Phosphatase 77 Units/L (34-104) 06/21/17 05:13 C-Reactive Protein 10 mg/L (Less than 10) H 06/20/17 10:40 B-Natriuretic Peptide 193 pg/mL (Less than 100) H 06/21/17 05:13 Serum Total Protein 6.2 g/dL (6.4-8.9) L 06/21/17 05:13 Albumin 3.7 g/dL (3.5-5.7) 06/21/17 05:13 Globulin 2.5 g/dL (2.4-3.5) 06/21/17 05:13 Albumin/Globulin Ratio 1.5 (1.1-2.2) 06/21/17 05:13 Blood Type AB NEGATIVE 06/20/17 17:50 Antibody Screen NEGATIVE 06/20/17 17:50 Impressions Abdomen/Pelvis CT 06/20/17 10:25 IMPRESSION: 1. No acute process 2. Prostatic enlargement with wall thickening of the urinary bladder compatible with chronic bladder outlet obstruction 3. No groin abscess or adenopathy 4. Right hydrocele D/ / Don Grover MD / Don Grover MD Interpreting Provider: Don Grover MD - Imaging EKG: image reviewed (EKg dated 06/21/2017 - 80bpm AFib) Anesthesia Exam Vital Signs Temp Pulse Resp BP Pulse Ox 06/21/17 10:30 97.8 F 108 16 154/81 97 06/21/17 06:47 97.8 F 67 16 142/80 98 06/21/17 04:38 98.0 F 67 17 155/82 97 06/21/17 00:35 97.9 F 79 16 146/86 06/21/17 00:27 97.9 F 79 16 144/79 97 06/21/17 00:23 98.1 F 76 16 126/69 06/20/17 23:53 98.4 F 77 15 125/76 97 06/20/17 21:03 97.6 F 72 16 124/79 06/20/17 20:48 98.1 F 75 16 98 06/20/17 20:43 98.1 F 76 16 107/61 99 06/20/17 20:02 97.6 F 86 17 122/64 99 06/20/17 16:35 97.8 F 84 14 144/87 99 06/20/17 15:13 79 16 138/78 06/20/17 14:15 70 14 136/96 97 Intake and Output 06/20/17 06/21/17 06/21/17 23:59 07:59 15:59 Intake Total 640 / 640 650 / 650 0 / 0 Output Total 950 / 950 400 / 400 325 / 325 Balance -310 / -310 250 / 250 -325 / -325 Intake: IV Fluids 50 / 50 300 / 300 0.9 % Sodium Chloride 250 ML @ 250 / 250 25 mls/hr IVC .Q10H [facility] Rx#: [id number] Cleocin Premix 600 MG/50 ML 600 50 / 50 50 / 50 mg In 50 ml @ 50 mls/hr IVPB Q8HR [facility] Rx#:[id number] Oral 240 / 240 0 / 0 0 / 0 Blood Product 350 / 350 350 / 350 Plasma Unit [id number] 350 / 350 Plasma Unit [id number] 350 / 350 Output: Urine 950 / 950 400 / 400 325 / 325 Other: Meal Dinner NPO Percent of Meal Consumed 100% # Voids 1 Weight 63.8 kg Height: 5'9" Weight: 140# BMI = 20.8 NPO (# of Hours): MNOc Pain Scale Used: Numeric (1 - 10) - HEENT Pupil (Motor): Pupils equal, EOMI Mallampati: II Teeth: Poor dentition Oral Opening: Greater than 3 - DATA MANAGEMENT LOC: Oriented DATA MANAGEMENT Motor: Normal RUE, Normal LUE, Normal RLE, Normal LLE, Normal Face DATA MANAGEMENT Sensory: Normal: RUE, LUE, RLE, LLE, Face - Cardiac Rhythm: Regular Murmur: None - Pulmonary Breath Sounds: bilateral Clear Respiratory Effort: Symmetrical Anesthesia Assess/Plan ASA Score: 3 Modified Yee Scale for Level of Consciousness: Cooperative, oriented, and tranquil Anesthetic Plan: General Monitoring Plan: Standard Monitors Recovery Plan: PACU Anes Supervising Prov Stmt: Pt seen/evaluated, R'&B Discussed, questions answered and consent obtained. Carlie Carr MD
[2017-06-21] MEDS ORDERED: traMADol 50 MG TABLET PO PRN (15:16)
[2017-06-21] MEDS ORDERED: Nitroglycerin 0.4 MG TAB.SUBL SL PRN (15:16)
[2017-06-21] MEDS ORDERED: Naloxone 0.4 MG/ML INJ IVP PRN (15:16)
[2017-06-22] MEDS: Clindamycin 600 MG/50 ML 600 MG/50 ML IV.SOLN IVPB SCH ×3 (01:44→16:48)
[2017-06-22 05:47] LABS: Basophils % 0.1 %; Hematocrit 33.3 % (37.5-50.1); Hemoglobin 11.2 g/dL (12.9-16.9); Immature Granulocytes % 0.3 % (0-4); Lymphocytes # 2.5 K/mcL (0.6-4.6); Lymphocytes % 28.8 %; Mean Corpuscular HGB Conc 33.6 g/dL (31.6-35.5); Mean Corpuscular Hemoglobin 31.5 pg (28.0-33.3); Mean Corpuscular Volume 93.5 fL (83.0-100.0); Mean Platelet Volume 9.4 fL (9.4-12.4); Monocytes # 0.4 K/mcL (0.0-1.3); Monocytes % 4.4 %; Neutrophils # 5.7 K/mcL (1.6-8.9); Platelet Count 175 K/mcL (140-400); Red Blood Count 3.56 M/mcL (4.19-5.50); Red Cell Distribution Width 14.8 % (11.5-14.5); Segmented Neutrophils % 66.4 %
[2017-06-22 06:12] LABS: BUN/Creatinine Ratio 15 (6-26); Blood Urea Nitrogen 13 mg/dL (8-23); Calcium 9.4 mg/dL (8.6-10.3); Carbon Dioxide 28 mEq/L (23-29); Chloride 100 mEq/L (98-107); Glucose 127 mg/dL (70-105); Osmolality,Calculated 278 (280-300); Potassium 4.4 mEq/L (3.5-5.1); Sodium 133 mEq/L (136-145); eGFR For African Americans > 60 (> 60); eGFR For Non-African Americans > 60 (> 60)
--- NOTE | 2017-06-22 07:44 | Operative Note ---
Date of procedure: 06/21/17 Pre-op diagnosis: right groin wound Post-op diagnosis: same Procedure: excisional debridement of right groin wound Complications: none Anesthesia: GETA Local Anesthetics: 0.5% Sensorcaine HCL SubQ (cc) Surgeon: Jeremy Willoughby Was there an assistant guest services manager present: No Estimated blood loss (cc): 2 Specimen: necrotic tissue from groin wound Condition: stable Disposition: PACU Procedure in Detail: patient was brought into the operating room suite. placed in the supine position. mechanical dvt prophylaxis was placed. The patient underwent smooth induction of anesthesia. the patient was prepped and draped in the usual fashion. preoperative antibiotics were given. a time out was held identifying correct patient pathology physician and procedure. i used the 15blade scalpel to debride the necrotic tissue and surrounding skin. the final measurement of the wound was 6cm x4cm x1mm; i debrided to the subcutaneous tissue. I did debride to bleeding, healthy tissue. I then concluded the procedure and the patient was escorted to PACU in stable condition.
--- NOTE | 2017-06-22 07:47 | General Surgery Progress Note ---
Date of Encounter: 06/22/17 Time of Encounter: 07:45 - Assessment and Plan (1) Necrotic eschar Current Visit: Yes Status: Acute 82M with necrotic wound in R groin POD #1 s/p excisional debridement diet as tolerated okay to send home from surgical standpoint follow up in my wound clinic in 2 weeks cares per primary team thank you for allowing me to take part in the care of this patient; feel free to call with any questions or new concerns Subjective Patient reports: no new complaints, feels better, still having pain, pain is less, tolerating a regular diet Objective Vital Signs - Last 8 Hours Temp Pulse Resp BP Pulse Ox 06/22/17 07:44 97.8 F 82 16 118/64 97 06/22/17 04:00 97.6 F 63 14 135/70 96 06/22/17 00:00 110/62 06/21/17 23:51 98.2 F 68 14 94/58 96 Intake and Output 06/21/17 06/21/17 06/22/17 15:59 23:59 07:59 Intake Total 0 / 0 290 / 290 0 / 0 Output Total 327 / 327 300 / 300 200 / 200 Balance -327 / -327 -10 / -10 -200 / -200 Intake: IV Fluids 50 / 50 Cleocin Premix 600 MG/50 ML 600 50 / 50 mg In 50 ml @ 50 mls/hr IVPB Q8HR ON LICENSE OF [facility] Rx#:[id number] Oral 0 / 0 240 / 240 0 / 0 Output: Urine 325 / 325 300 / 300 200 / 200 Estimated Blood Loss 2 / 2 Other: Meal NPO Dinner Percent of Meal Consumed 100% Weight 63.76 kg Patient Weight 06/22/17 23:59 Weight 63.76 kg - General physical appearance no distress - Respiratory normal expansion, normal respiratory effort - Cardiovascular Cardiovascular exam: Present: RRR - Integumentary other (wound: oozing, but clean; no necrotic tissue appreciated) - Neurologic CN 2-12 grossly intact - Psychiatric oriented to time, oriented to person, oriented to place - Labs 06/22/17 05:03 06/22/17 05:03 Diabetes panel 06/22/17 Range/Units 05:03 Sodium 133 L (136-145) mEq/L Potassium 4.4 (3.5-5.1) mEq/L Chloride 100 (98-107) mEq/L Carbon Dioxide 28 (23-29) mEq/L BUN 13 (8-23) mg/dL Creatinine 0.88 (0.70-1.30) mg/dL Glucose 127 H (70-105) mg/dL Calcium 9.4 (8.6-10.3) mg/dL Calcium panel 06/22/17 Range/Units 05:03 Calcium 9.4 (8.6-10.3) mg/dL Pituitary panel 06/22/17 Range/Units 05:03 Sodium 133 L (136-145) mEq/L Potassium 4.4 (3.5-5.1) mEq/L Chloride 100 (98-107) mEq/L Carbon Dioxide 28 (23-29) mEq/L BUN 13 (8-23) mg/dL Creatinine 0.88 (0.70-1.30) mg/dL Glucose 127 H (70-105) mg/dL Calcium 9.4 (8.6-10.3) mg/dL Adrenal panel 06/22/17 Range/Units 05:03 Sodium 133 L (136-145) mEq/L Potassium 4.4 (3.5-5.1) mEq/L Chloride 100 (98-107) mEq/L Carbon Dioxide 28 (23-29) mEq/L BUN 13 (8-23) mg/dL Creatinine 0.88 (0.70-1.30) mg/dL Glucose 127 H (70-105) mg/dL Calcium 9.4 (8.6-10.3) mg/dL Consult Discharge Plan - Plan Referrals: Zeke Dorantes Jr, MD [Primary Care Provider] -
[2017-06-22] MEDS: Finasteride 5 MG TABLET PO SCH (09:09)
[2017-06-22] MEDS: Aspirin 81 MG TAB.CHEW PO SCH (09:09)
[2017-06-22] MEDS: NIACIN 1500 MG PO SCH (09:09)
--- NOTE | 2017-06-22 10:47 | Event Note ---
<Socorro Ludwig - Last Filed: 06/22/17 10:43> Date of Encounter: 06/22/17 Time of Encounter: 10:43 - Patient Status Disposition: Still a Patient Overall status at discharge: patient is progressing back to baseline - Discharge Instructions Follow Up With: Jeremy Willoughby MD [Non-Partnered Physician] - 07/07/17 10:30 am (In wound care clinic in 2 weeks- unit leader to make appointment.) Additional Instructions: Wound care instructions: -Clean wound daily with antibacterial soap and water. -Dry afterwards. -Apply Xeroform gauze directly to the wound, then covered this with dry gauze. -Finally place medipore tape on top. <Jeremy Willoughby - Last Filed: 06/23/17 10:15> Date of Encounter: 06/23/17
--- NOTE | 2017-06-22 16:09 | Event Note ---
Date of Encounter: 06/22/17 Time of Encounter: 16:06 Right groin surgical site consistent with capillary bleed as expected. Noted OP note with debridement to healthy tissue. Continue pressure dressing applied per this INSULATION BLOWER. When removing dressing for wound care tomorrow am, remove outter tape and gauze. Moisten with saline prior to removing adaptic to help minimize shearing with dressing changes. No s/s of arterial or venous bleed noted. May roll patient in aprox 20 minutes to change bedding and gown. Recommend bed rest for this evening. Bedside RN, Ashley, kristy.
--- NOTE | 2017-06-22 16:10 | Internal Med Progress Note ---
Date of Encounter: 06/22/17 Time of Encounter: 16:08 - Assessment and plan (1) Cellulitis Current Visit: Yes Status: Acute Assessment and plan: patient is afebrile, normal WBC, continue clindamycin, CT result reviewed s/o I &D on 06/21, continue clindamycin wound is bleeding will watch ON Qualifiers: Site of cellulitis: trunk Site of cellulitis of trunk: groin Qualified Code(s): L03.314 - Cellulitis of groin (2) Atrial fibrillation Current Visit: Yes Status: Chronic Assessment and plan: HR well controlled, hold coumadin for wound .bleeding Qualifiers: Atrial fibrillation type: chronic Qualified Code(s): I48.2 - Chronic atrial fibrillation (3) Anticoagulation excessive Current Visit: Yes Status: Acute Assessment and plan: check INR tomorrow (4) HTN (hypertension) Current Visit: Yes Status: Chronic Assessment and plan: continue home meds Qualifiers: Hypertension type: essential hypertension Qualified Code(s): I10 - Essential (primary) hypertension - Time Spent With Patient 25 - 35 minutes - Subjective Interval history: Mr. Woodruff is an 82-year-old male with past medical history hypertension, chronic atrial fibrillation on Coumadin, CAD SP stent, HLD, GERD, Caldwell's esophagus, and diastolic heart failure. Patient presented to a [facility] on 06/20/2017 with a wound in his right groin area. Patient states this wound began in February or March of 2017. He states it progressed since that time. He saw his outpatient primary care provider Dr. Dorantes who debrided it in the office and gave him 10 days of oral antibiotics. He states the wound did not improve. The patient states the central area of the wound which appeared to him as a scab possibly started 2 weeks ago. He states this area is very tender. CT was done on 06/20 did not show abscess or gas surgery was consulted, had I&D on 06/21, patient's pain improved, but wound has been bleeding today, dressing was changed mbmary surgeon will contineu home coumadin and watching ON. - Constitutional Vitals: Temp Pulse Resp BP Pulse Ox 98.0 F 79 14 112/70 98 06/22/17 15:51 06/22/17 15:51 06/22/17 15:51 06/22/17 15:51 06/22/17 15:51 General appearance: Present: A&O X 3, pleasant, no acute distress Exam: CONSTITUTIONAL: patient appears as an age appropriate male in no acute distress. EYES Clear sclerae, bilateral pupils are equal, reactive to light. EMOI. RESPIRATORY: No accessory muscle use, bilateral clear to auscultation, no wheezing, no crackles/rales. CARDIOVASCULAR: Regular heart rate, normal S1 and S2, no murmurs GASTROINTESTINAL: bowel sounds present, soft, no tenderness. MUSCULOSKELETAL: Joints in normal range of motion, no clubbing, no edema, no cyanosis. Bilateral peripheral pulses 2+. NEUROLOGIC: CN II to XII are grossly intact, no focal neurological deficit. Internal Medicine: Result - Labs CBC & Chem 7: 06/22/17 05:03 06/22/17 05:03 Labs: Short CBC 06/22/17 Range/Units 05:03 WBC 8.6 (4.3-11.1) K/mcL Hgb 11.2 L (12.9-16.9) g/dL Hct 33.3 L (37.5-50.1) % Plt Count 175 (140-400) K/mcL Neutrophils # 5.7 (1.6-8.9) K/mcL BMP 06/22/17 05:03 Sodium 133 L Potassium 4.4 Chloride 100 Carbon Dioxide 28 BUN 13 Creatinine 0.88 Glucose 127 H Calcium 9.4 - ABG Interpretation ABG results: PT/INR, D-dimer PT 14.9 Seconds (9.4-12.1) H D 06/21/17 09:35 Consult Discharge Plan - Plan Additional Instructions: Wound care instructions: -Clean wound daily with antibacterial soap and water. -Dry afterwards. -Apply Xeroform gauze directly to the wound, then covered this with dry gauze. -Finally place medipore tape on top. Referrals: Jeremy Willoughby MD [Non-Partnered Physician] - 07/07/17 10:30 am (In wound care clinic in 2 weeks- hospice community liaison to make appointment.)
[2017-06-22] MEDS: 0.9 % Sodium Chloride 250 ML IVC SCH (16:49)
[2017-06-22] MEDS ORDERED: *HR* Warfarin 2.5 MG TABLET PO ONE (18:00)
[2017-06-22] MEDS ORDERED: Warfarin perPT PO PRN (18:00)
[2017-06-22 21:55] LABS: Hematocrit 29.8 % (37.5-50.1)
[2017-06-23] MEDS: Clindamycin 600 MG/50 ML 600 MG/50 ML IV.SOLN IVPB SCH ×4 (00:52→23:41)
[2017-06-23 06:13] LABS: Basophils % 0.4 %; Eosinophils # 0.1 K/mcL (0.0-0.6); Eosinophils % 1.7 %; Hematocrit 28.4 % (37.5-50.1); Hemoglobin 9.6 g/dL (12.9-16.9); Immature Granulocytes % 0.4 % (0-4); Lymphocytes # 2.9 K/mcL (0.6-4.6); Lymphocytes % 34.1 %; Mean Corpuscular HGB Conc 33.8 g/dL (31.6-35.5); Mean Corpuscular Hemoglobin 31.8 pg (28.0-33.3); Monocytes # 0.4 K/mcL (0.0-1.3); Monocytes % 4.9 %; Platelet Count 145 K/mcL (140-400); Red Blood Count 3.02 M/mcL (4.19-5.50); Red Cell Distribution Width 15.1 % (11.5-14.5); Segmented Neutrophils % 58.5 %
[2017-06-23 06:19] LABS: INR 1.2; Prothrombin Time 12.8 Seconds (9.4-12.1)
[2017-06-23 06:36] LABS: BUN/Creatinine Ratio 16 (6-26); Blood Urea Nitrogen 15 mg/dL (8-23); Carbon Dioxide 29 mEq/L (23-29); Chloride 102 mEq/L (98-107); Glucose 123 mg/dL (70-105); Osmolality,Calculated 282 (280-300); Potassium 4.9 mEq/L (3.5-5.1); Sodium 135 mEq/L (136-145); eGFR For African Americans > 60 (> 60); eGFR For Non-African Americans > 60 (> 60)
[2017-06-23] MEDS: 0.9 % Sodium Chloride 250 ML IVC SCH ×3 (08:14→08:45)
[2017-06-23] MEDS: Finasteride 5 MG TABLET PO SCH (08:15)
[2017-06-23] MEDS: Aspirin 81 MG TAB.CHEW PO SCH (08:15)
--- NOTE | 2017-06-23 08:36 | General Surgery Progress Note ---
<DaniloshannanSocorro - Last Filed: 06/23/17 08:51> Date of Encounter: 06/23/17 Time of Encounter: 08:33 - Assessment and Plan (1) Wound of right groin Current Visit: Yes Status: Acute Patient with a wound to his right groin. -IV antibiotics. Penicillin allergy. Will use clindamycin. -Coumadin being held for sustained bleeding from wound. -Hemoglobin dropping to 9.6 today is down from 12.7 on admission. Wound dressing changes every 2-3 hours that are soaked with blood. Hemoglobin and transfusions per primary team. -This morning, wound appears to have clotted. We will continue to follow and apply pressure dressings. If bleeding persists and remains voluminous, we will consider silver nitrate. Qualifiers: Encounter type: initial encounter Qualified Code(s): S31.109A - Unspecified open wound of abdominal wall, unspecified quadrant without penetration into peritoneal cavity, initial encounter (2) Cellulitis Current Visit: Yes Status: Acute Patient getting IV antibiotic coverage with clindamycin as he has a penicillin allergy. Qualifiers: Site of cellulitis: trunk Site of cellulitis of trunk: groin Qualified Code(s): L03.314 - Cellulitis of groin Subjective Patient reports: no new complaints, feels better (Patient soaking through dressing over groin wound every 2-3 hours. Soaked her dressing to the bed sheets. Has noticed that decreased in the last hour or so.), afebrile Objective Vital Signs - Last 8 Hours Temp Pulse Resp BP Pulse Ox 06/23/17 03:48 97.9 F 76 16 108/72 96 Intake and Output 06/22/17 06/23/17 06/23/17 23:59 07:59 15:59 Intake Total 290 / 290 50 / 50 Output Total 350 / 350 200 / 200 Balance -60 / -60 -150 / -150 Intake: IV Fluids 50 / 50 50 / 50 Cleocin Premix 600 MG/50 ML 600 50 / 50 50 / 50 mg In 50 ml @ 50 mls/hr IVPB Q8HR [facility] Rx#:[id number] Oral 240 / 240 0 / 0 Output: Urine 350 / 350 200 / 200 Other: Meal Dinner Percent of Meal Consumed 75% Weight 63.639 kg Patient Weight 06/23/17 23:59 Weight 63.639 kg - General physical appearance well developed, well nourished, no distress - Respiratory normal expansion, normal respiratory effort, clear to percussion, clear to auscultation - Cardiovascular Cardiovascular exam: Present: RRR, NR, no murmurs/rubs/gallops - Abdomen Abdomen: Present: bowel sounds present, soft, non tender Additional Comments: Wound superior and lateral to the right of the penis approximately 4 cm in length and 1-1/2 cm in width with evidence of clot forming on top of the wound. Healthy viable tissue visualized. No surrounding erythema or warmth. - Integumentary no rash - Psychiatric oriented to time, oriented to person, oriented to place, speech is normal, memory intact - Labs 06/23/17 05:59 06/23/17 05:59 Diabetes panel 06/23/17 Range/Units 05:59 Sodium 135 L (136-145) mEq/L Potassium 4.9 (3.5-5.1) mEq/L Chloride 102 (98-107) mEq/L Carbon Dioxide 29 (23-29) mEq/L BUN 15 (8-23) mg/dL Creatinine 0.91 (0.70-1.30) mg/dL Glucose 123 H (70-105) mg/dL Calcium 9.0 (8.6-10.3) mg/dL Calcium panel 06/23/17 Range/Units 05:59 Calcium 9.0 (8.6-10.3) mg/dL Pituitary panel 06/23/17 Range/Units 05:59 Sodium 135 L (136-145) mEq/L Potassium 4.9 (3.5-5.1) mEq/L Chloride 102 (98-107) mEq/L Carbon Dioxide 29 (23-29) mEq/L BUN 15 (8-23) mg/dL Creatinine 0.91 (0.70-1.30) mg/dL Glucose 123 H (70-105) mg/dL Calcium 9.0 (8.6-10.3) mg/dL Adrenal panel 06/23/17 Range/Units 05:59 Sodium 135 L (136-145) mEq/L Potassium 4.9 (3.5-5.1) mEq/L Chloride 102 (98-107) mEq/L Carbon Dioxide 29 (23-29) mEq/L BUN 15 (8-23) mg/dL Creatinine 0.91 (0.70-1.30) mg/dL Glucose 123 H (70-105) mg/dL Calcium 9.0 (8.6-10.3) mg/dL Consult Discharge Plan - Plan Additional Instructions: Wound care instructions: -Clean wound daily with antibacterial soap and water. -Dry afterwards. -Apply Xeroform gauze directly to the wound, then covered this with dry gauze. -Finally place medipore tape on top. Referrals: Jeremy Willoughby MD [Non-Partnered Physician] - 07/07/17 10:30 am (In wound care clinic in 2 weeks- community relations police lieutenant to make appointment.) <Jeremy Willoughby - Last Filed: 06/23/17 10:17> Date of Encounter: 06/23/17 - Assessment and Plan (1) Necrotic eschar Current Visit: Yes Status: Acute Objective Vital Signs - Last 8 Hours Temp Pulse Resp BP Pulse Ox 06/23/17 03:48 97.9 F 76 16 108/72 96 Intake and Output 06/22/17 06/23/17 06/23/17 23:59 07:59 15:59 Intake Total 290 / 290 50 / 50 Output Total 350 / 350 200 / 200 Balance -60 / -60 -150 / -150 Intake: IV Fluids 50 / 50 50 / 50 Cleocin Premix 600 MG/50 ML 600 50 / 50 50 / 50 mg In 50 ml @ 50 mls/hr IVPB Q8HR [facility] Rx#:[id number] Oral 240 / 240 0 / 0 Output: Urine 350 / 350 200 / 200 Other: Meal Dinner Percent of Meal Consumed 75% Weight 63.639 kg Patient Weight 06/23/17 23:59 Weight 63.639 kg - Labs 06/23/17 05:59 06/23/17 05:59 Diabetes panel 06/23/17 Range/Units 05:59 Sodium 135 L (136-145) mEq/L Potassium 4.9 (3.5-5.1) mEq/L Chloride 102 (98-107) mEq/L Carbon Dioxide 29 (23-29) mEq/L BUN 15 (8-23) mg/dL Creatinine 0.91 (0.70-1.30) mg/dL Glucose 123 H (70-105) mg/dL Calcium 9.0 (8.6-10.3) mg/dL Calcium panel 06/23/17 Range/Units 05:59 Calcium 9.0 (8.6-10.3) mg/dL Pituitary panel 06/23/17 Range/Units 05:59 Sodium 135 L (136-145) mEq/L Potassium 4.9 (3.5-5.1) mEq/L Chloride 102 (98-107) mEq/L Carbon Dioxide 29 (23-29) mEq/L BUN 15 (8-23) mg/dL Creatinine 0.91 (0.70-1.30) mg/dL Glucose 123 H (70-105) mg/dL Calcium 9.0 (8.6-10.3) mg/dL Adrenal panel 06/23/17 Range/Units 05:59 Sodium 135 L (136-145) mEq/L Potassium 4.9 (3.5-5.1) mEq/L Chloride 102 (98-107) mEq/L Carbon Dioxide 29 (23-29) mEq/L BUN 15 (8-23) mg/dL Creatinine 0.91 (0.70-1.30) mg/dL Glucose 123 H (70-105) mg/dL Calcium 9.0 (8.6-10.3) mg/dL - Attending Attestation patient seen and examined; i have reviewed all imaging, labs, and notes including this one. i agree with the above assessment and plan and wish to add the following... AF VSS; oozing at the wound, but patient is forming clots; cont with pressure dressing; may need application of silver nitrate; okay for discharge with follow up in wound clinic if bleeding is controlled;
[2017-06-23] MEDS ORDERED: Silver Nitrate Applicator 1 STICK..EA. TP ONE (10:36)
--- NOTE | 2017-06-23 16:52 | Internal Med Progress Note ---
Date of Encounter: 06/23/17 Time of Encounter: 11:00 - Assessment and plan (1) Necrotic eschar Current Visit: Yes Status: Acute Assessment and plan: Patient presented with necrotic scab/eschar in right groin, which began bleeding after he picked the scab. Surgery has been consulted, underwent excisional debridement of right groin wound on June 21. He was also started on IV clindamycin for possible infection and surrounding cellulitis. 2 sets of blood cultures, superficial wound culture, operative wound culture showed no bacterial growth. He continued to have significant capillary bleeding from the wound, underwent bedside cauterization today with appropriate control. INR is subtherapeutic at 1.2. Continue to hold Coumadin, monitor hemoglobin closely. Noted to have 2 g drop in hemoglobin since admission, currently at 9.6. We will transfuse if less than 9. (2) Wound of right groin Current Visit: Yes Status: Acute Qualifiers: Encounter type: initial encounter Qualified Code(s): S31.109A - Unspecified open wound of abdominal wall, unspecified quadrant without penetration into peritoneal cavity, initial encounter (3) CAD (coronary artery disease) Current Visit: Yes Status: Chronic Assessment and plan: Hold aspirin and Coumadin. Continue lisinopril. Qualifiers: Coronary Disease-Associated Artery/Lesion type: [place] artery [place] vs. transplanted heart: [place] heart Associated angina: without angina Qualified Code(s): I25.10 - Atherosclerotic heart disease of [place] coronary artery without angina pectoris (4) GERD (gastroesophageal reflux disease) Current Visit: Yes Status: Chronic Qualifiers: Esophagitis presence: esophagitis presence not specified Qualified Code(s) : K21.9 - Gastro-esophageal reflux disease without esophagitis (5) Atrial fibrillation Current Visit: Yes Status: Chronic Assessment and plan: Currently rate controlled. Continue to hold anticoagulations with Coumadin due to bleeding right groin wound. Qualifiers: Atrial fibrillation type: chronic Qualified Code(s): I48.2 - Chronic atrial fibrillation (6) HTN (hypertension) Current Visit: Yes Status: Chronic Qualifiers: Hypertension type: essential hypertension Qualified Code(s): I10 - Essential (primary) hypertension - Subjective Interval history: Feels better. Received bedside cauterization to right groin bleeding wound. No chest pain, shortness of breath. - Constitutional Vitals: Temp Pulse Resp BP Pulse Ox 98.0 F 86 15 105/59 98 06/23/17 15:59 06/23/17 15:59 06/23/17 15:59 06/23/17 15:59 06/23/17 15:59 General appearance: Present: A&O X 3, pleasant, answers questions appropriately - Respiratory Respiratory exam: Present: CTAB. Absent: accessory muscle use, rales, rhonchi, wheezes - Cardiovascular Cardiovascular exam: Present: irregular rhythm, +S1, +S2. Absent: diastolic murmur, gallop, rubs, systolic murmur - GI/Abdominal GI/Abdominal exam: Present: normal bowel sounds, soft, no peritoneal signs. Absent: distended, tenderness - Extremities Exam Extremities exam: Present: full ROM, warm, radial pulses palpable and symmetrical. Absent: calf tenderness, cyanotic, pedal edema Internal Medicine: Result - Labs CBC & Chem 7: 06/23/17 05:59 06/23/17 05:59 Labs: Short CBC 06/22/17 06/23/17 Range/Units 20:58 05:59 WBC 8.4 (4.3-11.1) K/mcL Hgb 10.0 L 9.6 L (12.9-16.9) g/dL Hct 29.8 L 28.4 L (37.5-50.1) % Plt Count 145 (140-400) K/mcL Neutrophils # 5.0 (1.6-8.9) K/mcL BMP 06/23/17 05:59 Sodium 135 L Potassium 4.9 Chloride 102 Carbon Dioxide 29 BUN 15 Creatinine 0.91 Glucose 123 H Calcium 9.0 - ABG Interpretation ABG results: PT/INR, D-dimer PT 12.8 Seconds (9.4-12.1) H 06/23/17 05:59 Consult Discharge Plan - Plan Additional Instructions: Wound care instructions: -Clean wound daily with antibacterial soap and water. -Dry afterwards. -Apply Xeroform gauze directly to the wound, then covered this with dry gauze. -Finally place medipore tape on top. Referrals: Jeremy Willoughby MD [Non-Partnered Physician] - 07/07/17 10:30 am (In wound care clinic in 2 weeks- ammunition assembly laborer to make appointment.)
[2017-06-23] MEDS: Lactobacillus 1 EACH CAP.SPRINK PO SCH (20:20)
[2017-06-24] MEDS: *HR* OxyCODONE Immed Rel 5 MG TABLET PO PRN ×2 (06:18→09:20)
[2017-06-24 06:22] LABS: Basophils # 0.1 K/mcL (0.0-0.2); Basophils % 0.5 %; Eosinophils # 0.3 K/mcL (0.0-0.6); Eosinophils % 3.1 %; Hematocrit 29.7 % (37.5-50.1); Hemoglobin 9.8 g/dL (12.9-16.9); Immature Granulocytes % 0.3 % (0-4); Lymphocytes # 3.5 K/mcL (0.6-4.6); Lymphocytes % 36.6 %; Mean Corpuscular Hemoglobin 31.2 pg (28.0-33.3); Mean Corpuscular Volume 94.6 fL (83.0-100.0); Mean Platelet Volume 9.4 fL (9.4-12.4); Monocytes # 0.5 K/mcL (0.0-1.3); Monocytes % 4.8 %; Neutrophils # 5.3 K/mcL (1.6-8.9); Platelet Count 191 K/mcL (140-400); Red Blood Count 3.14 M/mcL (4.19-5.50); Red Cell Distribution Width 15.4 % (11.5-14.5); Segmented Neutrophils % 54.7 %
[2017-06-24 06:26] LABS: INR 1.1; Prothrombin Time 12.1 Seconds (9.4-12.1)
[2017-06-24] MEDS: Clindamycin 600 MG/50 ML 600 MG/50 ML IV.SOLN IVPB SCH (09:16)
[2017-06-24] MEDS: Aspirin 81 MG TAB.CHEW PO SCH (09:17)
[2017-06-24] MEDS: Finasteride 5 MG TABLET PO SCH (09:17)
[2017-06-24] MEDS: Lactobacillus 1 EACH CAP.SPRINK PO SCH (09:17)
[2017-06-24] MEDS ORDERED: Sennosides/Docusate Sodium TABLET PO SCH (10:15)
--- NOTE | 2017-06-24 13:23 | Event Note ---
Date of Encounter: 06/24/17 Time of Encounter: 11:30 - Patient Status Disposition: Home, Self-Care Condition: Good Functional capacity at discharge: independent ambulation Overall status at discharge: patient is progressing back to baseline - Discharge Instructions Follow Up With: Jeremy Willoughby MD [Non-Partnered Physician] - 07/07/17 10:30 am (In wound care clinic in 2 weeks- equal opportunity officer to make appointment.) Additional Instructions: Wound care instructions: -Clean wound daily with antibacterial soap and water. -Dry afterwards. -Apply non-stick dressing. -Finally place medipore tape on top. - Diet and Activity Activity: increase activity as tolerated Diet: advance to your usual diet
--- NOTE | 2017-06-24 14:07 | Discharge Summary ---
- NOTES TO OUTPATIENT PROVIDER Notes to Outpatient Provider: Right lower abdomen wound- f/up clinically; held Coumadin due to bleeding wound, restrating now at discharge Orders not resulted at time of discharge: Pending orders 06/21/17 14:50 Culture,Anaerobic [RM] Stat 06/25/17 04:00 PT/INR [Prothrombin Time INR] [COAG] AM 0400 06/26/17 04:00 PT/INR [Prothrombin Time INR] [COAG] AM 0400 06/27/17 04:00 PT/INR [Prothrombin Time INR] [COAG] AM 0400 06/28/17 04:00 PT/INR [Prothrombin Time INR] [COAG] AM 0400 Pathology 06/21/17 14:17 Surgical Pathology [PTH] Routine Comment: Department: Surgical Pathology Specimen: Has been collected Specimen placed in fixative?: Yes Tissue Removal Time:: 14:21 Tissue Fixative Time:: 14:21 DATE AZAEL:: 06/21/17 PRE-OP DIAGNOSIS:: right groin wound POST-OP DIAGNOSIS:: same SPECIMEN & SITE: 1: right groin necrotic tissue Date of Encounter: 06/24/17 Time of Encounter: 11:40 - Discharge Diagnosis (1) Necrotic eschar Priority: Primary Status: Acute (2) Wound of right groin Priority: Primary Status: Acute Qualifiers: Encounter type: initial encounter Qualified Code(s): S31.109A - Unspecified open wound of abdominal wall, unspecified quadrant without penetration into peritoneal cavity, initial encounter (3) CAD (coronary artery disease) Priority: Secondary Status: Chronic Qualifiers: Coronary Disease-Associated Artery/Lesion type: [place] artery [place] vs. transplanted heart: [place] heart Associated angina: without angina Qualified Code(s): I25.10 - Atherosclerotic heart disease of [place] coronary artery without angina pectoris (4) GERD (gastroesophageal reflux disease) Priority: Secondary Status: Chronic Qualifiers: Esophagitis presence: esophagitis presence not specified Qualified Code(s) : K21.9 - Gastro-esophageal reflux disease without esophagitis (5) Atrial fibrillation Priority: Secondary Status: Chronic Qualifiers: Atrial fibrillation type: chronic Qualified Code(s): I48.2 - Chronic atrial fibrillation (6) HTN (hypertension) Priority: Secondary Status: Chronic Qualifiers: Hypertension type: essential hypertension Qualified Code(s): I10 - Essential (primary) hypertension Hospital course: Mr. Landry is a 82 year old male with the above medical problems, who was admitted with a bleeding wound in right pubic/inguinal area. He was noted to have a necrotic eschar, which started to bleed after the patient picked at the wound. He was on anticoagulation with Coumadin, which has been held since admission, INR was noted to be slightly supratherapeutic which was reversed with FFP's. Surgery was consulted, underwent excisional debridement of the inguinal wound on June 21, following which he had significant capillary bleeding, which was eventually cauterized at bedside. His breathing is currently controlled and he is stable for discharge home with wound care clinic follow-up. He did have a 2 g drop in hemoglobin since admission however it remained above 9.5 and did not require transfusion. He was treated with IV clindamycin for possible cellulitis while in the hospital , there is no evidence of cellulitis at this time and he is not being discharged on antibiotics. Discharge discussed with: patient, family - Time Spent with Patient Total time spent providing and/or coordinating discharge services: Greater than 30 minutes (45 min) - Discharge Medications Prescriptions: OxyCODONE Immed Rel [Roxicodone 5 MG] 5 mg PO Q6H PRN 3 Days #10 tablet PRN Reason: Severe Pain Sennosides/Docusate Sodium [Senna Plus] 1 each PO BID PRN #30 tablet PRN Reason: Constipation Home Medications: Aspirin 81 mg PO DAILY #30 tab.chew 08/16/15 [Rx] Lisinopril [Zestril] 5 mg PO DAILY #30 tablet 08/16/15 [Rx] Lansoprazole [Prevacid] 30 mg PO DAILY #0 01/17/16 [History] Niacin [Niacor] 1,500 mg PO BID 01/17/16 [History] Warfarin [Coumadin] 5 mg PO MOWE 01/17/16 [History] Nitroglycerin 0.4 mg SL Q5MIN PRN #30 tab.subl 01/18/16 [Rx] Finasteride [Proscar] 5 mg PO DAILY 06/20/17 [History] Warfarin [Coumadin] 2.5 mg PO SUTUTHFRSA 06/20/17 [History] OxyCODONE Immed Rel [Roxicodone 5 MG] 5 mg PO Q6H PRN 3 Days #10 tablet [Rx] Sennosides/Docusate Sodium [Senna Plus] 1 each PO BID PRN #30 tablet 06/24/17 [ Rx] Allergies/Adverse Reactions: 3 Allergy/AdvReac Type Severity Reaction Status Date / Time Penicillins Allergy Hives Verified 10/11/16 21:42 Date of admission: 06/20/17 17:01 Primary care physician: Zeke Dorantes Jr, MD Discharging clinician: Shamika Tay Anticipated date of discharge: 06/24/17 - Constitutional Vitals: Temp Pulse Resp BP Pulse Ox 97.8 F 75 15 116/63 99 06/24/17 11:40 06/24/17 11:40 06/24/17 11:40 06/24/17 11:40 06/24/17 11:40 General appearance: Present: A&O X 3, pleasant, answers questions appropriately - GI/Abdominal GI/Abdominal exam: Present: normal bowel sounds, soft, no peritoneal signs. Absent: distended, tenderness Additional comments: right pubic/inguinal area- shallow wound with dried/clotted blood, no active bleeding; - Patient Status Disposition: Home, Self-Care Condition: Good Functional capacity at discharge: independent ambulation Overall status at discharge: patient is progressing back to baseline - Discharge Instructions Follow Up With: Jeremy Willoughby MD [Non-Partnered Physician] - 07/07/17 10:30 am (In wound care clinic in 2 weeks- [employer] [place] marshal to make appointment.) Additional Instructions: Wound care instructions: -Clean wound daily with antibacterial soap and water. -Dry afterwards. -Apply non-stick dressing. -Finally place medipore tape on top. - Diet and Activity Activity: resume usual activities as tolerated (per Surgery restrictions) Diet: low fat, low cholesterol, low salt diet
[2017-06-24 15:06] VITALS: BP 116/73
== END 2017-06-24 16:33 | disposition home or self-care (01) | DRG 571 ==
LOC: 3ANU 10:08 → EMEROO 10:08 → 3ANU 16:11 → SUATTDRO 17:01
PROVIDERS: ADMIT Internal Medicine; ATTEND Internal Medicine

== ENCOUNTER 2017-08-17 15:07 | Observation (INO) ==
--- NOTE | 2017-08-17 15:51 | Emergency Department Note ---
Disposition Clinical Impression: SOB (shortness of breath) on exertion, Elevated troponin, Shortness of breath, Hyponatremia Atrial fibrillation Qualifiers: Atrial fibrillation type: chronic Qualified Code(s): I48.2 - Chronic atrial fibrillation Disposition: Admitted As Inpatient Condition: Good Referrals: Zeke Dorantes Jr, MD [Primary Care Provider] - Forms: ED Satisfaction Letter Time of Disposition: 18:22 General Adult HPI - General Chief complaint: ED Shortness of Breath/Dyspnea Stated complaint: ALICIA Dx pneumonia Time Seen by Provider: 08/17/17 15:35 Source: family Limitations: no limitations Nursing Notes Reviewed: Yes Vital Signs Reviewed: Yes - History of Present Illness HPI Narrative: Mr. Woodruff is a very pleasant 82-year-old gentleman with past history of hypertension, hyperlipidemia, CAD with prior stents and reflux who presents to the [facility] emergency department the chief complaint of worsening shortness of breath and nonproductive cough. He reports that the symptoms started last week on . He recently saw his primary care physician Dr. Dorantes on Thursday and was diagnosed with pneumonia. He was given Levaquin and prednisone. Over the weekend his symptoms did not improve and today that he states that his shortness of breath has worsened. He still has nonproductive cough. The shortness of breath worsens with exertion. He denies any anginal type chest pain, nausea, vomiting, diaphoresis. He denies any fevers at home or fevers at his primary care physician. No recent sick contacts. He was recently hospitalized and discharged from the [facility] due to a necrotic wound found in his groin on June 24, 2017. Since then, patient has been diagnosed with pneumonia reportedly 2-3 times. No history of a pulmonary embolus. No other complaints at this time. Pain Scale: 0 - Related Data Home Medications Medication Instructions Recorded Confirmed Lansoprazole [Prevacid] 30 mg PO DAILY #0 01/17/16 06/20/17 Niacin [Niacor] 1,500 mg PO BID 01/17/16 06/20/17 Warfarin [Coumadin] 5 mg PO WE 01/17/16 06/20/17 Finasteride [Proscar] 5 mg PO DAILY 06/20/17 06/20/17 Warfarin [Coumadin] 2.5 mg PO [id number] 06/20/17 06/20/17 Previous Rx's Medication Instructions Recorded Aspirin 81 mg PO DAILY #30 tab.chew 08/16/15 Lisinopril [Zestril] 5 mg PO DAILY #30 tablet 08/16/15 Nitroglycerin 0.4 mg SL Q5MIN PRN #30 tab.subl 01/18/16 Allergies Allergy/AdvReac Type Severity Reaction Status Date / Time Penicillins Allergy Hives Verified 08/17/17 18:30 Review of Systems: Constitutional: No fever Vision: No blurred vision ENT: No rhinorrhea Respiratory: No cough Allergic: No allergies : No blood in urine GI: No blood in stool Hematologic: No bruising Dermatologic: No skin rash Musculoskeletal: No pain in the extremities Neuro: No numbness of the extremities Past Medical History - Past Medical History Medical history: Reports: atrial fibrillation, coronary artery disease, GERD, other Surgical history: Reports: angioplasty/stent, other Psychiatric history: Reports: no psych history - Social History Smoking Status: Former smoker Smokeless Tobacco Status: No Alcohol use: Reports: none Drug use: Reports: none Physical Exam CONSTITUTIONAL: Alert and oriented X3 in no apparent distress HEAD: Normocephalic; atraumatic. EYES: no scleral icterus, no drainage, no conjunctival injection NOSE: The nose is normal in appearance without rhinorrhea Oropharynx: pink/moist RESP: NRD without use of accessory musculature, CTA b/l with no wheezes/rales/ rhonchi CARD: irregular irregular rhythm, without murmurs, rubs, or gallop ABD: grossly normal, soft, non-tender, no guarding/distention/rigidity SKIN: normal appearance, no pallor/diaphoresis,mottling,jaundice,cyanosis EXT: DP/Rad pulses 2+ and symmetrical; no lateralizing edema; no other lesions seen PSYCH: appropriate mood/affect - General Limitations: no limitations General appearance: alert, in no apparent distress Course Course Narrative: Patient was seen and examined at bedside. Vital signs were reviewed and showed mild tachypnea respirate rate of 22. Physical examination demonstrates mild bibasilar wheezing. No evidence of any rhonchi or rales. In the setting of CAD , HTN, HLD, recurrent pneumonia and worsening shortness of breath after outpatient therapy, we will begin workup with CBC, BMP, coags, 12-lead EKG, chest x-ray. Breathing treatment was ordered. I am concerned for possible pneumonia versus bronchitis. No h/o COPD or tobacco abuse. Pulmonary embolism is still on the differential but is not my #1 diagnosis. He is showing no signs or symptoms of DVT, heart rate stable, denies any immobilization or recent surgeries, never been diagnosed with a PE in the past, denies any hemoptysis or any malignancies. Disposition pending. 1820: CBC showed a mild bump with a leukocytosis of 14 at the patient has been on a 3-4 day course of prednisone. BMP and coags were unremarkable. Twelve- lead EKG showed no ischemic changes. Chest x-ray shows no acute process. Patient responded well to duoneb therapy due to his shortness of breath. He denies any anginal chest pain. Troponin came back 0.05. His heart score is 5. I recommend admission via the hospital service for observation and likely stress test tomorrow to rule out any worsening CAD. Hospitalist will be paged. Disposition was discussed with patient and family who agree to plan. 1849: Spoke with hospitalist, Dr. Rodriguez, who will accept patient for admission. Vital Signs Temperature 97.7 F 08/17/17 15:28 Pulse Rate 101 08/17/17 15:28 Respiratory Rate 20 08/17/17 15:28 Blood Pressure 128/76 08/17/17 15:28 O2 Sat by Pulse Oximetry 95 08/17/17 15:28 Temperature 97.7 F 08/17/17 15:28 Pulse Rate 86 08/17/17 17:02 Respiratory Rate 19 08/17/17 17:02 Blood Pressure 113/74 08/17/17 17:02 O2 Sat by Pulse Oximetry 95 08/17/17 17:02 Oxygen Delivery Oxygen Delivery Room Air Medical Decision Making - Medical Records Medical records reviewed: Yes I reviewed the patient's medical records. - Lab Data Lab results reviewed: Yes I reviewed the patient's lab results. Result diagrams: 08/17/17 16:23 08/17/17 16:23 Lab Results 08/17/17 08/17/17 08/17/17 Range/Units 16:23 16:23 16:23 WBC 14.2 H (4.3-11.1) K/mcL RBC 3.69 L (4.19-5.50) M/mcL Hgb 10.7 L (12.9-16.9) g/dL Hct 32.2 L (37.5-50.1) % MCV 87.3 (83.0-100.0) fL MCH 29.0 (28.0-33.3) pg MCHC 33.2 (31.6-35.5) g/dL RDW 14.8 H (11.5-14.5) % Plt Count 236 (140-400) K/mcL MPV 8.3 L (9.4-12.4) fL Immature Gran % 0.8 (0-4) % Seg Neutrophils % 76.4 % Lymphocytes % 20.3 % Monocytes % 2.5 % Eosinophils % 0.0 % Basophils % 0.0 % Neutrophils # 10.8 H (1.6-8.9) K/mcL Lymphocytes # 2.9 (0.6-4.6) K/mcL Monocytes # 0.4 (0.0-1.3) K/mcL Eosinophils # 0.0 (0.0-0.6) K/mcL Basophils # 0.0 (0.0-0.2) K/mcL PT 22.9 H (9.4-12.1) Seconds INR 2.1 APTT 30.0 (26.0-36.0) Seconds Sodium 123 L (136-145) mEq/L Potassium 4.7 (3.5-5.1) mEq/L Chloride 91 L (98-107) mEq/L Carbon Dioxide 25 (23-29) mEq/L BUN 17 (8-23) mg/dL Creatinine 1.19 (0.70-1.30) mg/dL Est GFR ( Amer) > 60 (> 60) Est GFR (Non-Af Amer) 59 L (> 60) BUN/Creatinine Ratio 14 (6-26) Glucose 241 H (70-105) mg/dL Calculated Osmolality 265 L (280-300) Calcium 9.5 (8.6-10.3) mg/dL Troponin I 0.05 H* (< 0.04) ng/mL - Radiology Data Radiology results reviewed: Yes I reviewed the patient's radiology results. - EKG Data EKG #1 EKG attestation: Yes I reviewed and interpreted this EKG. EKG results narrative: 08/17/17 1610: Heart rate 86, QRS 98, QTC 39. There are no identifiable P waves consistent with chronic atrial fibrillation. There are no ischemic changes seen. This EKG was compared to previous and was performed on 06/21/17. Attestation Statement - Attestation Attestation: I, Wild Russell DO, examined this patient [id number] and my medical decision-making was reviewed with Valente Llanos PGY-1, Resident Physician. I agree with the documented findings, disposition and treatment plan as described except to the extent set forth below. Please see my progress notes for details.
[2017-08-17] MEDS ORDERED: Ipratropium/Albuterol Neb 3 ML IH ONE (15:56)
[2017-08-17 16:34] LABS: Hematocrit 32.2 % (37.5-50.1); Hemoglobin 10.7 g/dL (12.9-16.9); Immature Granulocytes % 0.8 % (0-4); Lymphocytes # 2.9 K/mcL (0.6-4.6); Lymphocytes % 20.3 %; Mean Corpuscular HGB Conc 33.2 g/dL (31.6-35.5); Mean Corpuscular Volume 87.3 fL (83.0-100.0); Mean Platelet Volume 8.3 fL (9.4-12.4); Monocytes # 0.4 K/mcL (0.0-1.3); Monocytes % 2.5 %; Neutrophils # 10.8 K/mcL (1.6-8.9); Platelet Count 236 K/mcL (140-400); Red Blood Count 3.69 M/mcL (4.19-5.50); Red Cell Distribution Width 14.8 % (11.5-14.5); Segmented Neutrophils % 76.4 %
--- NOTE | 2017-08-17 16:39 | Emergency Department Note ---
Disposition Clinical Impression: Atrial fibrillation, Shortness of breath, Elevated troponin, Hyponatremia Disposition: Admitted As Inpatient Condition: Fair Referrals: Zeke Dorantes Jr, MD [Primary Care Provider] - Forms: ED Satisfaction Letter Time of Disposition: 18:34 General Adult HPI - General Chief complaint: ED Shortness of Breath/Dyspnea Stated complaint: ALICIA Dx pneumonia Time Seen by Provider: 08/17/17 15:35 Source: family Limitations: no limitations - History of Present Illness Pain Scale: 0 - Related Data Home Medications Medication Instructions Recorded Confirmed Lansoprazole [Prevacid] 30 mg PO DAILY #0 01/17/16 06/20/17 Niacin [Niacor] 1,500 mg PO BID 01/17/16 06/20/17 Warfarin [Coumadin] 5 mg PO WE 01/17/16 06/20/17 Finasteride [Proscar] 5 mg PO DAILY 06/20/17 06/20/17 Warfarin [Coumadin] 2.5 mg PO SUMOTUTHFRSA 06/20/17 06/20/17 Previous Rx's Medication Instructions Recorded Aspirin 81 mg PO DAILY #30 tab.chew 08/16/15 Lisinopril [Zestril] 5 mg PO DAILY #30 tablet 08/16/15 Nitroglycerin 0.4 mg SL Q5MIN PRN #30 tab.subl 01/18/16 Allergies Allergy/AdvReac Type Severity Reaction Status Date / Time Penicillins Allergy Hives Verified 08/17/17 15:33 Past Medical History - Past Medical History Medical history: Reports: atrial fibrillation, coronary artery disease, GERD, other Surgical history: Reports: angioplasty/stent, other Psychiatric history: Reports: no psych history - Social History Smoking Status: Former smoker Smokeless Tobacco Status: No Alcohol use: Reports: none Drug use: Reports: none Physical Exam - General Limitations: no limitations General appearance: alert, in no apparent distress Course Vital Signs Temperature 97.7 F 08/17/17 15:28 Pulse Rate 101 08/17/17 15:28 Respiratory Rate 20 08/17/17 15:28 Blood Pressure 128/76 08/17/17 15:28 O2 Sat by Pulse Oximetry 95 08/17/17 15:28 Temperature 97.7 F 08/17/17 15:28 Pulse Rate 86 08/17/17 17:02 Respiratory Rate 19 08/17/17 17:02 Blood Pressure 113/74 08/17/17 17:02 O2 Sat by Pulse Oximetry 95 08/17/17 17:02 Oxygen Delivery Oxygen Delivery Room Air Medical Decision Making - Lab Data Result diagrams: 08/17/17 16:23 08/17/17 16:23 Lab Results 08/17/17 08/17/17 08/17/17 Range/Units 16:23 16:23 16:23 WBC 14.2 H (4.3-11.1) K/mcL RBC 3.69 L (4.19-5.50) M/mcL Hgb 10.7 L (12.9-16.9) g/dL Hct 32.2 L (37.5-50.1) % MCV 87.3 (83.0-100.0) fL MCH 29.0 (28.0-33.3) pg MCHC 33.2 (31.6-35.5) g/dL RDW 14.8 H (11.5-14.5) % Plt Count 236 (140-400) K/mcL MPV 8.3 L (9.4-12.4) fL Immature Gran % 0.8 (0-4) % Seg Neutrophils % 76.4 % Lymphocytes % 20.3 % Monocytes % 2.5 % Eosinophils % 0.0 % Basophils % 0.0 % Neutrophils # 10.8 H (1.6-8.9) K/mcL Lymphocytes # 2.9 (0.6-4.6) K/mcL Monocytes # 0.4 (0.0-1.3) K/mcL Eosinophils # 0.0 (0.0-0.6) K/mcL Basophils # 0.0 (0.0-0.2) K/mcL PT 22.9 H (9.4-12.1) Seconds INR 2.1 APTT 30.0 (26.0-36.0) Seconds Sodium 123 L (136-145) mEq/L Potassium 4.7 (3.5-5.1) mEq/L Chloride 91 L (98-107) mEq/L Carbon Dioxide 25 (23-29) mEq/L BUN 17 (8-23) mg/dL Creatinine 1.19 (0.70-1.30) mg/dL Est GFR ( Amer) > 60 (> 60) Est GFR (Non-Af Amer) 59 L (> 60) BUN/Creatinine Ratio 14 (6-26) Glucose 241 H (70-105) mg/dL Calculated Osmolality 265 L (280-300) Calcium 9.5 (8.6-10.3) mg/dL Troponin I 0.05 H* (< 0.04) ng/mL Attestation Statement - Attestation Attestation: I, Wild Russell DO, examined this patient [id number] and my medical decision-making was reviewed with Valente Llanos PGY-1 Resident Physician. I agree with the documented findings, disposition and treatment plan as described except to the extent set forth below. Please see my progress notes for details. 82-year-old male presents to emergency room with cough no fevers no chills no chest pain no nausea vomiting or diarrhea no headache or vision change. Patient presents after being seen and evaluated and treated at the primary care providers twice. He is currently on antibiotics. He still having the cough and increased work of breathing. Patient does have persistently worsening shortness of breath. Any new medications or fevers or chills. He has not had any new medications at home. Physical exam shows a tall thin appearing gentleman. He does not appear to be in any respiratory distress at this time. He does have diminished breath sounds of the right side worse than the left. He does have some slight increased work of breathing. Heart is regular chronic A. fib. Abdomen is soft nontender nondistended no guarding no rigidity no peritoneal symptoms no guarding and no pulsatile masses. Patient has no signs of pitting edema in extremities he moves all 4 extremities with purpose. He has no neurologic deficits or symptoms of this time. Patient is ambulatory. Patient suspicion for sentences intractable.. Breathing treatments given chest x-ray ordered. CBC chemistry troponin and BNP will also be collected. Expect the patient will require CT imaging of the chest to rule out pulmonary emboli versus infarct versus mass. Patient is otherwise medically stable at this time. Disposition pending workup and treatment course. See detailed documentation of the physical exam, medical intervention, medical decision- making and disposition in the resident physician's note. No critical care of this patient's treatment course at this time 1800 CT imaging of the chest is unremarkable for pulmonary emboli or nodule. Patient does have elevated troponin and low sodium at this time. Hemoglobin is at baseline. Symptoms are better with the breathing treatments but because of the patient's elevated troponin as well as increased work of breathing and abnormal labs patient will be admitted for further observation evaluation. Patient's Coumadin numbers are therapeutic at this time with a INR of 2.1. Disposition will be admission the hospital for definitive management
[2017-08-17 16:44] LABS: INR 2.1; Prothrombin Time 22.9 Seconds (9.4-12.1)
[2017-08-17 16:59] LABS: BUN/Creatinine Ratio 14 (6-26); Blood Urea Nitrogen 17 mg/dL (8-23); Calcium 9.5 mg/dL (8.6-10.3); Carbon Dioxide 25 mEq/L (23-29); Chloride 91 mEq/L (98-107); Glucose 241 mg/dL (70-105); Osmolality,Calculated 265 (280-300); Potassium 4.7 mEq/L (3.5-5.1); Sodium 123 mEq/L (136-145); eGFR For African Americans > 60 (> 60); eGFR For Non-African Americans 59 (> 60)
[2017-08-17 17:11] LABS: Troponin I 0.05 ng/mL (< 0.04)
[2017-08-17] MEDS ORDERED: *HR* Warfarin 5 MG TABLET PO SCH (18:00)
[2017-08-17] MEDS ORDERED: Nitroglycerin 0.4 MG TAB.SUBL SL PRN (23:41)
[2017-08-17] MEDS ORDERED: Naloxone 0.4 MG/ML INJ IVP PRN (23:43)
[2017-08-17] MEDS ORDERED: cefTRIAXone 1,000 MG in Water for inj. (sterile) 20 ML 10 ML IVPB SCH (23:45)
--- NOTE | 2017-08-17 23:54 | Internal Med History&Physical ---
Date of Encounter: 08/17/17 Time of Encounter: 23:50 Internal Medicine - H&P: HPI Chief complaint: chest pain and shortness of breath. Admitted From: Emergency Dept Plans for Post Hospital Care: Home History of present illness: Mr. Landry is a 82 year old male was about on history of hypertension, coronary artery disease, mitral fibrillation, previous angiography/angioplasty/stent. Patient had a tough last 2 months. Patient was hospitalized 2 months back for atrial fibrillation with rapid ventricular rate. Patient has multiple hospitalizations after this episode. Presently patient completed the treatment for pneumonia. Patient is still complaining of cough along with shortness of breath and chest pain. He has chest pain is precordial in nature. It is nonradiating and localized worsening with exercise and reviewed with the rest. patient is complaining of occasional shortness of breath upon minimal exertion. Workup in the emergency room: Patient was evaluated in the emergency room. Basic labs were drawn. EKG was done. Noted that patient has a positive troponin. Reason for admission: Positive troponin/chest pain in a patient who has a multiple comorbid conditions. Past Med Surg Social Fam HX - Past Medical History Medical history: atrial fibrillation, coronary artery disease, GERD, other Psychiatric history: no psych history - Past Surgical History Surgical History: angioplasty/stent, other - Social History Smoking Status: Former smoker Smokeless Tobacco Status: No Alcohol use: none Drug use: none - Family History Mother Living Status: Hx Family Cardiac Disorders: Yes (CHF) Hx Family Respiratory Disorders: No Hx Family Cancer: No Hx Family GI Disorders: No Hx Family Endocrine Disorder: No Hx Family Neuromuscular Disorders: No Hx Family Neurologic Disorders: No Hx Family HEENT Disorders: No Hx Family Autoimmune Disorders: No Father Living Status: Hx Family Cardiac Disorders: No Hx Family Respiratory Disorders: Yes (unknown) Hx Family Cancer: No Hx Family GI Disorders: No Hx Family Endocrine Disorder: No Hx Family Neuromuscular Disorders: No Hx Family Neurologic Disorders: No Hx Family HEENT Disorders: No Hx Family Autoimmune Disorders: No Internal Medicine - H&P: Meds Aspirin 81 mg PO DAILY #30 tab.chew 08/16/15 [Rx] Lisinopril [Zestril] 5 mg PO DAILY #30 tablet 08/16/15 [Rx] Lansoprazole [Prevacid] 30 mg PO DAILY #0 01/17/16 [History] Niacin [Niacor] 1,500 mg PO BID 01/17/16 [History] Warfarin [Coumadin] 5 mg PO WESA 01/17/16 [History] Nitroglycerin 0.4 mg SL Q5MIN PRN #30 tab.subl 01/18/16 [Rx] Finasteride [Proscar] 5 mg PO DAILY 06/20/17 [History] Warfarin [Coumadin] 2.5 mg PO SUMOTUTHFR 06/20/17 [History] 3 Allergy/AdvReac Type Severity Reaction Status Date / Time Penicillins Allergy Hives Verified 08/17/17 18:30 All Systems PM: A 10-system review of systems was performed and is negative for pertinent findings except as documented above in the HPI. - Constitutional Constitutional: no chills, no fever(s), no night sweats - EENT Eyes: no change in vision, no discharge, no pain, no photophobia Ears: no ear discharge, no ear pain, no tinnitus Nose, mouth and throat: no dysphagia, no nasal discharge, no neck pain, no sore throat - Cardiovascular Cardiovascular ROS IM: no chest pain, no diaphoresis, no dyspnea, no lightheadedness, no palpitations, no syncope - Respiratory Respiratory: cough, dyspnea, wheezing, snoring, excessive phlegm production, change in phlegm color - Gastrointestinal Gastrointestinal: no abdominal pain, no diarrhea, no hematemesis, no hematochezia, no melena, no nausea, no vomiting - Musculoskeletal Musculoskeletal ROS IM: no numbness, no tingling - Integumentary Integumentary IM: no rash, no unusual bruising - Neurological Neurological ROS: no confusion, no convulsions, no focal weakness, no numbness, no tingling, no tremor(s) - Hematologic/Lymphatic Hematologic/Lymphatic: no easy bruising - Constitutional Vitals: Temp Pulse Resp BP Pulse Ox 98.3 F 94 16 159/79 96 08/17/17 21:54 08/17/17 21:54 08/17/17 21:54 08/17/17 21:54 08/17/17 21:54 General appearance: Present: A&O X 3, pleasant, no acute distress, answers questions appropriately - Head Head exam: Present: atraumatic, normocephalic - Eye Eye exam: Present: PERRL, conjuntiva pink, sclera anicteric Pupils: Present: PERRL - Neck Neck exam general surgery: Present: supple, trachea midline. Absent: lymphadenopathy - Respiratory Respiratory exam: Present: CTAB. Absent: accessory muscle use, rales, rhonchi, wheezes - Cardiovascular Cardiovascular exam: Present: RRR, +S1, +S2. Absent: diastolic murmur, gallop, rubs, systolic murmur - GI/Abdominal GI/Abdominal exam: Present: normal bowel sounds, soft, no peritoneal signs. Absent: distended, tenderness - Extremities Exam Extremities exam: Present: warm, radial pulses palpable and symmetrical. Absent : calf tenderness, cyanotic, pedal edema - Neurological Exam Neurological exam: Present: CN II-XII intact, oriented X3, no focal deficits. Absent: pronater drift, facial droop, speech deficit - Skin Skin exam: Present: dry, intact Internal Med - H&P Results - Labs CBC & Chem 7: 08/17/17 16:23 08/17/17 16:23 - Assessment and plan (1) Elevated troponin Current Visit: Yes Status: Acute Assessment and plan: Patient has elevated troponin. Discontinue multifactorial. This is likely demand ischemia. Patient is on Coumadin. INR is therapeutic 2.1. At this point I would like to hold the cardiology consult. If the troponin is persistently elevated then we will call cardiology. (2) Shortness of breath Current Visit: Yes Status: Acute Assessment and plan: Patient is a worsening shortness of breath. At this point etiology of the same is multifactorial. We will continue antibiotics for possible underlying completion of treatment for pneumonia. (3) Atrial fibrillation Current Visit: Yes Status: Chronic Assessment and plan: He is known to have a total duration. Rate control: Beta francesco Antivibration: Coumadin: INR: 2.1 We will continue same. Qualifiers: Atrial fibrillation type: chronic Qualified Code(s): I48.2 - Chronic atrial fibrillation (4) CAD (coronary artery disease) Current Visit: No Status: Chronic Assessment and plan: Patient is known to have a coronary artery disease. 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 Patient patient is chest pain-free has of now Close monitoring of the cardiac status. Qualifiers: Coronary Disease-Associated Artery/Lesion type: [place] artery [place] vs. transplanted heart: [place] heart Associated angina: without angina Qualified Code(s): I25.10 - Atherosclerotic heart disease of [place] coronary artery without angina pectoris (5) HTN (hypertension) Current Visit: No Status: Chronic Assessment and plan: Patient blood pressure is presently well controlled. We will monitor telemetry. we will resume all home medication. Qualifiers: Hypertension type: essential hypertension Qualified Code(s): I10 - Essential (primary) hypertension (6) DVT prophylaxis Current Visit: Yes Status: Acute Assessment and plan: Coumadin: INR 2.1 Medical decision making: This patient has a moderate to severe risk of worsening in spite of on appropriate medication due to the underlying complex medical conditions. - Time Spent With Patient Total time spent is greater than 50% in coordination of care (as documented) at patient's floor/unit and/or counseling patient:
[2017-08-18 01:31] LABS: Basophils % 0.1 %; Hematocrit 29.1 % (37.5-50.1); Hemoglobin 9.6 g/dL (12.9-16.9); Immature Granulocytes % 0.6 % (0-4); Lymphocytes # 2.5 K/mcL (0.6-4.6); Lymphocytes % 23.5 %; Mean Corpuscular Hemoglobin 28.7 pg (28.0-33.3); Mean Corpuscular Volume 86.9 fL (83.0-100.0); Mean Platelet Volume 8.7 fL (9.4-12.4); Monocytes # 0.4 K/mcL (0.0-1.3); Monocytes % 3.4 %; Neutrophils # 7.8 K/mcL (1.6-8.9); Platelet Count 201 K/mcL (140-400); Red Blood Count 3.35 M/mcL (4.19-5.50); Red Cell Distribution Width 14.7 % (11.5-14.5); Segmented Neutrophils % 72.4 %
[2017-08-18 01:38] LABS: INR 2.1; Prothrombin Time 23.4 Seconds (9.4-12.1)
[2017-08-18 01:40] LABS: Activated Partial Thrombo Time 29.2 Seconds (26.0-36.0)
[2017-08-18 01:57] LABS: Alkaline Phosphatase 65 Units/L (34-104); BUN/Creatinine Ratio 16 (6-26); Bilirubin,Total 0.6 mg/dL (0.3-1.0); Blood Urea Nitrogen 14 mg/dL (8-23); Calcium 9.1 mg/dL (8.6-10.3); Carbon Dioxide 23 mEq/L (23-29); Chloride 94 mEq/L (98-107); Glucose 144 mg/dL (70-105); Magnesium 1.5 mg/dL (1.6-2.6); Osmolality,Calculated 269 (280-300); Phosphorous 2.6 mg/dL (2.7-4.5); Potassium 3.9 mEq/L (3.5-5.1); Sodium 128 mEq/L (136-145); eGFR For African Americans > 60 (> 60); eGFR For Non-African Americans > 60 (> 60)
[2017-08-18 01:58] LABS: Alanine Aminotransferase 13 Units/L (7-52); Albumin 3.4 g/dL (3.5-5.7); Albumin/Globulin Ratio 1.3 (1.1-2.2); Aspartate Amino Transferase 19 Units/L (13-39); Chol/HDL Ratio 2.5 (0-4.9); Cholesterol 165 mg/dL (< 200); Globulin 2.6 g/dL (2.4-3.5); HDL Cholesterol 67 mg/dL (40-59); LDL Cholesterol,Calculated 89 mg/dL (0-99); Triglycerides 45 mg/dL (< 150)
[2017-08-18] MEDS ORDERED: Finasteride 5 MG TABLET PO SCH (09:00)
[2017-08-18] MEDS ORDERED: Aspirin 81 MG TAB.CHEW PO SCH (09:00)
--- NOTE | 2017-08-18 09:24 | Electrocardiograph Report ---
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
[2017-08-18 14:34] VITALS: BP 119/75
--- NOTE | 2017-08-18 16:14 | Discharge Summary ---
Orders not resulted at time of discharge: Pending orders 08/17/17 23:47 Culture,Blood [BC] Routine Date of Encounter: 08/18/17 Time of Encounter: 16:12 - Discharge Diagnosis (1) Elevated troponin Priority: Primary Status: Resolved (2) Hyponatremia Priority: Secondary Status: Chronic (3) Shortness of breath Priority: Secondary Status: Resolved (4) Atrial fibrillation Priority: Secondary Status: Chronic Qualifiers: Atrial fibrillation type: chronic Qualified Code(s): I48.2 - Chronic atrial fibrillation (5) CAD (coronary artery disease) Priority: Secondary Status: Chronic Qualifiers: Coronary Disease-Associated Artery/Lesion type: [place] artery [place] vs. transplanted heart: [place] heart Associated angina: without angina Qualified Code(s): I25.10 - Atherosclerotic heart disease of [place] coronary artery without angina pectoris (6) GERD (gastroesophageal reflux disease) Priority: Secondary Status: Chronic Qualifiers: Esophagitis presence: esophagitis presence not specified Qualified Code(s) : K21.9 - Gastro-esophageal reflux disease without esophagitis (7) HTN (hypertension) Priority: Secondary Status: Chronic Qualifiers: Hypertension type: essential hypertension Qualified Code(s): I10 - Essential (primary) hypertension Hospital course: Mr. Landry is a 82 year old male was about on history of hypertension, coronary artery disease, mitral fibrillation, previous angiography/angioplasty/stent. Patient had a tough last 2 months. Patient was hospitalized 2 months back for atrial fibrillation with rapid ventricular rate. Patient has multiple hospitalizations after this episode. Patient was admitted for shortness of breasts and chest pain was moderately elevated troponin 0.05. Second troponin 0.03. Patient feels well denies chest pain no shortness of breath. We discussed echocardiogram and a stress test the patient declined all test. 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 Cassidy, he will follow up with him. He had the stress test on 01/18/2016 was negative. patient is dischareg on stable condition. Discharge discussed with: patient Time spent discussing smoking cessation with patient: more than 10 minutes - Time Spent with Patient Total time spent providing and/or coordinating discharge services: Less than 30 minutes - Discharge Medications Home Medications: Aspirin 81 mg PO DAILY #30 tab.chew 08/16/15 [Rx] Lisinopril [Zestril] 5 mg PO DAILY #30 tablet 04/14/16 [Rx] Lansoprazole [Prevacid] 30 mg PO DAILY #0 01/17/16 [History] Niacin [Niacor] 1,500 mg PO BID 01/17/16 [History] Warfarin [Coumadin] 5 mg PO WESA 01/17/16 [History] Nitroglycerin 0.4 mg SL Q5MIN PRN #30 tab.subl 01/18/16 [Rx] Finasteride [Proscar] 5 mg PO DAILY 06/20/17 [History] Warfarin [Coumadin] 2.5 mg PO SUMOTUTHFR 06/20/17 [History] Allergies/Adverse Reactions: 3 Allergy/AdvReac Type Severity Reaction Status Date / Time Penicillins Allergy Hives Verified 08/17/17 18:30 Date of admission: 08/17/17 18:55 Primary care physician: Zeke Dorantes Jr, MD Discharging clinician: Cole Ybarra Anticipated date of discharge: 08/18/17 - Constitutional Vitals: Temp Pulse Resp BP Pulse Ox 97.8 F 67 19 119/75 99 08/18/17 14:32 08/18/17 14:32 08/18/17 14:32 08/18/17 14:32 08/18/17 14:32 General appearance: Present: A&O X 3, pleasant, no acute distress, answers questions appropriately Exam: .CONSTITUTIONAL: Patient appears as an age appropriate [male] well developed, in no acute distress. EYES Clear sclerae, bilateral pupils are equal, reactive to light and accommodation. Extraocular movements are intact RESPIRATORY: No accessory muscle use, bilateral clear to auscultation, no wheezing, no crackles/rales. CARDIOVASCULAR: Regular heart rate, normal S1 and S2, no murmurs GASTROINTESTINAL: bowel sounds present, soft, no tenderness. No hepatosplenomegaly. No bilateral CVA tenderness MUSCULOSKELETAL: Joints in normal range of motion, no clubbing, no edema, no cyanosis. Bilateral peripheral pulses 2+ LYMPHATIC no lymphadenopathy in neck, groin and axilla bilaterally, no thyromegaly. NEUROLOGIC: CN II to XII are grossly intact, no focal neurological deficit. Deep tendon reflexes 2+ bilaterally. Normal light touch sensation to upper and lower extremity PSYCHIATRIC: Oriented x3, with good insight, mood is euthymic. No hallucinations or delusions. SKIN: Skin warm and dry, no rashes, no open wound. - Patient Status Disposition: Home, Self-Care Condition: Good Functional capacity at discharge: independent ambulation Overall status at discharge: patient is back to baseline - Discharge Instructions Follow Up With: Ana Wright CNP [Advanced Practice Nurse] - 08/25/17 10:00 am Neville Cassidy MD [Partnered Physician] - 09/09/17 3:00 pm - Diet and Activity Diet: advance to your usual diet
[2017-08-19] MEDS ORDERED: *HR* Warfarin 5 MG TABLET PO SCH (18:00)
== END 2017-08-18 17:21 | disposition home or self-care (01) ==
LOC: EMEROO 15:07 → 3BNU 15:07 → SUATTDRO 18:55 → 3BNU 19:48
PROVIDERS: ADMIT Internal Medicine; ATTEND Hospitalist

== ENCOUNTER 2018-10-23 19:35 | Observation (INO) ==
--- NOTE | 2018-10-23 19:42 | Emergency Department Note ---
Disposition Clinical Impression: Hyponatremia Pneumonia Qualifiers: Pneumonia type: due to unspecified organism Laterality: left Lung location: lower lobe of lung Qualified Code(s): J18.1 - Lobar pneumonia, unspecified organism Anemia Qualifiers: Anemia type: unspecified type Qualified Code(s): D64.9 - Anemia, unspecified Disposition: Admitted As Inpatient Condition: Good Time of Disposition: 22:15 General Adult HPI - General Stated complaint: AFIB/Cough Time Seen by Provider: 10/23/18 19:37 Source: patient, family Mode of arrival: ambulatory Limitations: no limitations Nursing Notes Reviewed: Yes Vital Signs Reviewed: Yes - History of Present Illness HPI Narrative: 83-year-old male past medical history of atrial fibrillation on Coumadin presenting for 2 week history of gradually progressive and worsening shortness of breath, cough, and weakness. She states that he has been taking Mucinex at home for the management of his symptoms which has provided minimal relief. Patient states he is getting more weak as the days have progressed and is now having lightheadedness/dizziness, difficulty with ambulation due to the lightheadedness and diffuse body aches. Patient is complaining of chest pain but states he believes it is due to his cough. Cough has been productive of whitish phlegm, there is no hematemesis, no hemoptysis, patient has no other concerns or complaints at this time. Onset (ago): week(s) Location: chest Pain Severity: moderate Pain Scale: 5 Associated symptoms: Reports: chest pain, cough, fever/chills, malaise, shortness of breath, weakness Treatments Prior to Arrival: none - Related Data Home Medications Medication Instructions Recorded Confirmed Lansoprazole [Prevacid] 30 mg PO DAILY #0 01/17/16 08/17/17 Niacin [Niacor] 1,500 mg PO BID 01/17/16 08/17/17 Warfarin [Coumadin] 5 mg PO WESA 01/17/16 08/17/17 Finasteride [Proscar] 5 mg PO DAILY 06/20/17 08/17/17 Warfarin [Coumadin] 2.5 mg PO SUMOTUTHFR 06/20/17 08/17/17 Previous Rx's Medication Instructions Recorded Aspirin 81 mg PO DAILY #30 tab.chew 08/16/15 Lisinopril [Zestril] 5 mg PO DAILY #30 tablet 08/16/15 Nitroglycerin 0.4 mg SL Q5MIN PRN #30 tab.subl 01/18/16 Allergies Allergy/AdvReac Type Severity Reaction Status Date / Time Penicillins Allergy Hives Verified 10/23/18 19:41 Review of Systems: *See History of Present Illness for more detail Constitutional: Admits to hot and cold alterations. Denies: fever, chills Cardiovascular: Admits: chest pain Respiratory: Admits: dyspnea, cough, denies: hemoptysis Gastrointestinal: Denies: abdominal pain, nausea, vomiting, diarrhea, constipation, hematemesis, melena, hematochezia Genitourinary: Denies: hematuria Musculoskeletal: Denies: back pain, neck pain Neurological: Admits to weakness, lightheadedness/dizziness and difficulty with ambulation. Denies: headache, numbness, paresthesias. Endocrine: Admits: fatigue All systems ED: reviewed and negative except as stated. Review of Systems: As Per HPI Past Medical History - Past Medical History Medical history: Reports: atrial fibrillation, coronary artery disease, GERD, other Surgical history: Reports: angioplasty/stent, other Psychiatric history: Reports: no psych history - Social History Smoking Status: Former smoker Smokeless Tobacco Status: No Alcohol use: Reports: none Drug use: Reports: none Physical Exam Constitutional: Patient is in mild distress due to respiratory status, he is otherwise [id number], engaged to conversation, speech is fluid, answers questions appropriately Neuro: GCS 15, no overt focal neurological deficits Head: Atraumatic, normocephalic Eyes: Pupils equal, round and reactive to light, no scleral icterus, no conjunctival injection Neck: Trachea midline without deviation. Anterior neck is supple without swelling. *Chest: Patient appears to have pectus excavatum, there is accessory muscle of respiration use, prolonged expiratory phase. Symmetric chest wall rise *Heart: Cardiac rhythm and rate are regular with S1 and S2 , no S3 or S4 appreciated, no murmurs, gallops, rubs, or clicks. *Lungs: There is low tidal volumes of respiration. Lungs are otherwise clear to auscultation bilaterally, No wheezes, rhonchi or stridor appreciated. Abdomen: Abdomen is flat, soft to palpation, normal bowel sounds. No abdominal bruit auscultated. Non-distended, non-rigid, no organomegaly, no ascites appreciated. No pulsatile mass, no tenderness or guarding to palpation in all four quadrants, no rebound Extremities: Normal capillary refill without evidence of pedal edema, joint s welling or erythema. Pulses/motor/sensory intact in all 4 extremities. Psychiatric exam: Patient displays a normal affect and mood for the environment. No overt signs of hallucination. Integumentary: warm, dry, intact, normal color. No rash, cyanosis, diaphoresis, erythema, or pallor - General Limitations: no limitations General appearance: alert, in distress Course Course Narrative: Differential diagnosis includes but is not limited to: COPD Myocardial ischemia Pneumonia Bronchitis Other viral syndrome UTI Evaluations: CBC, BMP, EKG/old EKG, troponin, chest x-ray 2 view Treatments: DuoNeb nebs and steroids, aspirin for cardiac prophylaxis. Vital Signs Temperature 98.3 F 10/23/18 19:48 Pulse Rate 97 10/23/18 19:48 Respiratory Rate 18 10/23/18 19:48 Blood Pressure 137/80 10/23/18 19:48 O2 Sat by Pulse Oximetry 100 10/23/18 19:48 Temperature 98.3 F 10/23/18 19:48 Pulse Rate 100 10/23/18 23:01 Respiratory Rate 17 10/23/18 23:01 Blood Pressure 127/62 10/23/18 23:01 O2 Sat by Pulse Oximetry 100 10/23/18 23:01 Oxygen Delivery Oxygen Delivery Room Air Medical Decision Making - MDM Narrative Medical decision making narrative: Patient imaging shows a left lower lobe pneumonia - was started patient on ceftriaxone and azithromycin at this time. Confirmed with pharmacy the patient has taken Rocephin in the past without issue. We will do daily INRs for Coumadin check with azithromycin. Patient laboratory show a hyponatremia at 126,-urine osmolality and urine sodium will be drawn at this time, we will repeat sodium 4 hours after initial draw. Patient also with a mild anemia which appears consistent with prior values. EKG is unremarkable with the exception of the known atrial fibrillation. Patient be admitted to hospitalist medicine service for further evaluation and management of respiratory distress in the setting of pneumonia and hyponatremia. Dr. Ruby accepting admission. - Lab Data Lab results reviewed: Yes I reviewed the patient's lab results. Result diagrams: 10/23/18 19:55 10/23/18 19:55 Lab Results 10/23/18 10/23/18 10/23/18 Range/Units 19:55 19:55 19:55 WBC 13.6 H (4.3-11.1) K/mcL RBC 3.62 L (4.19-5.50) M/mcL Hgb 12.1 L (12.9-16.9) g/dL Hct 34.3 L (37.5-50.1) % MCV 94.8 (83.0-100.0) fL MCH 33.4 H (28.0-33.3) pg MCHC 35.3 (31.6-35.5) g/dL RDW 15.4 H (11.5-14.5) % Plt Count 161 (140-400) K/mcL MPV 8.8 L (9.4-12.4) fL Immature Gran % 0.5 (0-4) % Seg Neutrophils % 71.3 % Lymphocytes % 21.3 % Monocytes % 6.2 % Eosinophils % 0.6 % Basophils % 0.1 % Neutrophils # 9.7 H (1.6-8.9) K/mcL Lymphocytes # 2.9 (0.6-4.6) K/mcL Monocytes # 0.8 (0.0-1.3) K/mcL Eosinophils # 0.1 (0.0-0.6) K/mcL Basophils # 0.0 (0.0-0.2) K/mcL PT (9.4-12.1) Seconds INR Sodium 126 L (136-145) mEq/L Potassium 4.1 (3.5-5.1) mEq/L Chloride 92 L (98-107) mEq/L Carbon Dioxide 26 (23-29) mEq/L BUN 16 (8-23) mg/dL Creatinine 0.76 (0.70-1.30) mg/dL Est GFR ( Amer) > 60 (> 60) Est GFR (Non-Af Amer) > 60 (> 60) BUN/Creatinine Ratio 21 (6-26) Glucose 135 H (70-105) mg/dL Calculated Osmolality 265 L (280-300) Calcium 9.3 (8.6-10.3) mg/dL Troponin I < 0.03 (< 0.04) ng/mL Urine Color (Yellow) Urine Clarity (Clear) Urine pH (5.0-8.0) pH Units Ur Specific [place] (1.010-1.025) Urine Protein (Neg-Trace) mg/dL Urine Glucose (UA) (Normal) mg/dL Urine Ketones (Negative) mg/dL Urine Blood (Negative) Urine Nitrite (Negative) Urine Bilirubin (Negative) Urine Urobilinogen (Normal) mg/dL Ur Leukocyte Esterase (Negative) Ur Culture Indicated? (NO) 10/23/18 10/23/18 Range/Units 19:55 21:18 WBC (4.3-11.1) K/mcL RBC (4.19-5.50) M/mcL Hgb (12.9-16.9) g/dL Hct (37.5-50.1) % MCV (83.0-100.0) fL MCH (28.0-33.3) pg MCHC (31.6-35.5) g/dL RDW (11.5-14.5) % Plt Count (140-400) K/mcL MPV (9.4-12.4) fL Immature Gran % (0-4) % Seg Neutrophils % % Lymphocytes % % Monocytes % % Eosinophils % % Basophils % % Neutrophils # (1.6-8.9) K/mcL Lymphocytes # (0.6-4.6) K/mcL Monocytes # (0.0-1.3) K/mcL Eosinophils # (0.0-0.6) K/mcL Basophils # (0.0-0.2) K/mcL PT 31.9 H (9.4-12.1) Seconds INR 2.8 Sodium (136-145) mEq/L Potassium (3.5-5.1) mEq/L Chloride (98-107) mEq/L Carbon Dioxide (23-29) mEq/L BUN (8-23) mg/dL Creatinine (0.70-1.30) mg/dL Est GFR ( Amer) (> 60) Est GFR (Non-Af Amer) (> 60) BUN/Creatinine Ratio (6-26) Glucose (70-105) mg/dL Calculated Osmolality (280-300) Calcium (8.6-10.3) mg/dL Troponin I (< 0.04) ng/mL Urine Color Yellow (Yellow) Urine Clarity Clear (Clear) Urine pH 7.5 (5.0-8.0) pH Units Ur Specific [place] 1.005 L (1.010-1.025) Urine Protein Trace (Neg-Trace) mg/dL Urine Glucose (UA) Normal (Normal) mg/dL Urine Ketones Negative (Negative) mg/dL Urine Blood Negative (Negative) Urine Nitrite Negative (Negative) Urine Bilirubin Negative (Negative) Urine Urobilinogen Normal (Normal) mg/dL Ur Leukocyte Esterase Negative (Negative) Ur Culture Indicated? NO (NO) - Radiology Data Radiology results reviewed: Yes I reviewed the patient's radiology results. Chest X-Ray 10/23/18 19:40 IMPRESSION: Mild left basilar airspace disease, atelectasis versus pneumonia. D/ / Lester Toney MD / Lester Toney MD Interpreting Provider: Lester Toney MD - EKG Data EKG #1 EKG attestation: Yes I reviewed and interpreted this EKG. EKG results narrative: Patient's EKG shows an atrial fibrillation with a heart of 94 bpm, QRS duration of 84 ms, QT/QTc 318/398 ms respectively. There are no significant ST segment elevations, depressions, pathologic Q waves, abnormal T-wave inversions, nor any other signs acute ischemic change. At this time there is no prior EKG available for comparison.
[2018-10-23] MEDS ORDERED: Ipratropium/Albuterol Neb 3 ML IH ONE (19:43)
[2018-10-23] MEDS ORDERED: methylPREDNISolone 125 MG/2 ML VIAL IVP ONE (19:43)
[2018-10-23] MEDS ORDERED: Aspirin 81 MG TAB.CHEW PO STA (19:44)
[2018-10-23 20:08] LABS: Basophils % 0.1 %; Eosinophils # 0.1 K/mcL (0.0-0.6); Eosinophils % 0.6 %; Hematocrit 34.3 % (37.5-50.1); Hemoglobin 12.1 g/dL (12.9-16.9); Immature Granulocytes % 0.5 % (0-4); Lymphocytes # 2.9 K/mcL (0.6-4.6); Lymphocytes % 21.3 %; Mean Corpuscular HGB Conc 35.3 g/dL (31.6-35.5); Mean Corpuscular Hemoglobin 33.4 pg (28.0-33.3); Mean Corpuscular Volume 94.8 fL (83.0-100.0); Mean Platelet Volume 8.8 fL (9.4-12.4); Monocytes # 0.8 K/mcL (0.0-1.3); Monocytes % 6.2 %; Neutrophils # 9.7 K/mcL (1.6-8.9); Platelet Count 161 K/mcL (140-400); Red Blood Count 3.62 M/mcL (4.19-5.50); Red Cell Distribution Width 15.4 % (11.5-14.5); Segmented Neutrophils % 71.3 %; White Blood Count 13.6 K/mcL (4.3-11.1)
[2018-10-23 20:29] LABS: BUN/Creatinine Ratio 21 (6-26); Blood Urea Nitrogen 16 mg/dL (8-23); Calcium 9.3 mg/dL (8.6-10.3); Carbon Dioxide 26 mEq/L (23-29); Chloride 92 mEq/L (98-107); Glucose 135 mg/dL (70-105); Osmolality,Calculated 265 (280-300); Potassium 4.1 mEq/L (3.5-5.1); Sodium 126 mEq/L (136-145); eGFR For African Americans > 60 (> 60); eGFR For Non-African Americans > 60 (> 60)
--- NOTE | 2018-10-23 21:36 | Emergency Department Note ---
Disposition Clinical Impression: Hyponatremia Pneumonia Qualifiers: Pneumonia type: due to unspecified organism Laterality: left Lung location: lower lobe of lung Qualified Code(s): J18.1 - Lobar pneumonia, unspecified organism Anemia Qualifiers: Anemia type: unspecified type Qualified Code(s): D64.9 - Anemia, unspecified Disposition: Admitted As Inpatient Condition: Good Time of Disposition: 22:15 General Adult HPI - General Chief complaint: ED Shortness of Breath/Dyspnea Stated complaint: AFIB/Cough Time Seen by Provider: 10/23/18 19:37 Source: patient, family Mode of arrival: ambulatory Limitations: no limitations Nursing Notes Reviewed: Yes Vital Signs Reviewed: Yes - History of Present Illness Location: chest Pain Scale: 5 Associated symptoms: Reports: chest pain, cough, fever/chills, malaise, shortness of breath, weakness Treatments Prior to Arrival: none - Related Data Home Medications Medication Instructions Recorded Confirmed Lansoprazole [Prevacid] 30 mg PO DAILY #0 01/17/16 08/17/17 Niacin [Niacor] 1,500 mg PO BID 01/17/16 08/17/17 Warfarin [Coumadin] 5 mg PO WESA 01/17/16 08/17/17 Finasteride [Proscar] 5 mg PO DAILY 06/20/17 08/17/17 Warfarin [Coumadin] 2.5 mg PO SUMOTUTHFR 06/20/17 08/17/17 Previous Rx's Medication Instructions Recorded Aspirin 81 mg PO DAILY #30 tab.chew 08/16/15 Lisinopril [Zestril] 5 mg PO DAILY #30 tablet 08/16/15 Nitroglycerin 0.4 mg SL Q5MIN PRN #30 tab.subl 01/18/16 Allergies Allergy/AdvReac Type Severity Reaction Status Date / Time Penicillins Allergy Hives Verified 10/23/18 19:41 Past Medical History - Past Medical History Medical history: Reports: atrial fibrillation, coronary artery disease, GERD, other Surgical history: Reports: angioplasty/stent, other Psychiatric history: Reports: no psych history - Social History Smoking Status: Former smoker Smokeless Tobacco Status: No Alcohol use: Reports: none Drug use: Reports: none Physical Exam - General Limitations: no limitations General appearance: alert, in distress Course Vital Signs Temperature 98.3 F 10/23/18 19:48 Pulse Rate 97 10/23/18 19:48 Respiratory Rate 18 10/23/18 19:48 Blood Pressure 137/80 10/23/18 19:48 O2 Sat by Pulse Oximetry 100 10/23/18 19:48 Temperature 98.3 F 10/23/18 19:48 Pulse Rate 100 10/23/18 23:01 Respiratory Rate 17 10/23/18 23:01 Blood Pressure 127/62 10/23/18 23:01 O2 Sat by Pulse Oximetry 100 10/23/18 23:01 Oxygen Delivery Oxygen Delivery Room Air Medical Decision Making - Medical Records Medical records reviewed: Yes I reviewed the patient's medical records. - Lab Data Lab results reviewed: Yes I reviewed the patient's lab results. Result diagrams: 10/23/18 19:55 10/23/18 19:55 Lab Results 10/23/18 10/23/18 10/23/18 Range/Units 19:55 19:55 19:55 WBC 13.6 H (4.3-11.1) K/mcL RBC 3.62 L (4.19-5.50) M/mcL Hgb 12.1 L (12.9-16.9) g/dL Hct 34.3 L (37.5-50.1) % MCV 94.8 (83.0-100.0) fL MCH 33.4 H (28.0-33.3) pg MCHC 35.3 (31.6-35.5) g/dL RDW 15.4 H (11.5-14.5) % Plt Count 161 (140-400) K/mcL MPV 8.8 L (9.4-12.4) fL Immature Gran % 0.5 (0-4) % Seg Neutrophils % 71.3 % Lymphocytes % 21.3 % Monocytes % 6.2 % Eosinophils % 0.6 % Basophils % 0.1 % Neutrophils # 9.7 H (1.6-8.9) K/mcL Lymphocytes # 2.9 (0.6-4.6) K/mcL Monocytes # 0.8 (0.0-1.3) K/mcL Eosinophils # 0.1 (0.0-0.6) K/mcL Basophils # 0.0 (0.0-0.2) K/mcL PT (9.4-12.1) Seconds INR Sodium 126 L (136-145) mEq/L Potassium 4.1 (3.5-5.1) mEq/L Chloride 92 L (98-107) mEq/L Carbon Dioxide 26 (23-29) mEq/L BUN 16 (8-23) mg/dL Creatinine 0.76 (0.70-1.30) mg/dL Est GFR ( Amer) > 60 (> 60) Est GFR (Non-Af Amer) > 60 (> 60) BUN/Creatinine Ratio 21 (6-26) Glucose 135 H (70-105) mg/dL Calculated Osmolality 265 L (280-300) Calcium 9.3 (8.6-10.3) mg/dL Troponin I < 0.03 (< 0.04) ng/mL Urine Color (Yellow) Urine Clarity (Clear) Urine pH (5.0-8.0) pH Units Ur Specific [place] (1.010-1.025) Urine Protein (Neg-Trace) mg/dL Urine Glucose (UA) (Normal) mg/dL Urine Ketones (Negative) mg/dL Urine Blood (Negative) Urine Nitrite (Negative) Urine Bilirubin (Negative) Urine Urobilinogen (Normal) mg/dL Ur Leukocyte Esterase (Negative) Ur Culture Indicated? (NO) 10/23/18 10/23/18 Range/Units 19:55 21:18 WBC (4.3-11.1) K/mcL RBC (4.19-5.50) M/mcL Hgb (12.9-16.9) g/dL Hct (37.5-50.1) % MCV (83.0-100.0) fL MCH (28.0-33.3) pg MCHC (31.6-35.5) g/dL RDW (11.5-14.5) % Plt Count (140-400) K/mcL MPV (9.4-12.4) fL Immature Gran % (0-4) % Seg Neutrophils % % Lymphocytes % % Monocytes % % Eosinophils % % Basophils % % Neutrophils # (1.6-8.9) K/mcL Lymphocytes # (0.6-4.6) K/mcL Monocytes # (0.0-1.3) K/mcL Eosinophils # (0.0-0.6) K/mcL Basophils # (0.0-0.2) K/mcL PT 31.9 H (9.4-12.1) Seconds INR 2.8 Sodium (136-145) mEq/L Potassium (3.5-5.1) mEq/L Chloride (98-107) mEq/L Carbon Dioxide (23-29) mEq/L BUN (8-23) mg/dL Creatinine (0.70-1.30) mg/dL Est GFR ( Amer) (> 60) Est GFR (Non-Af Amer) (> 60) BUN/Creatinine Ratio (6-26) Glucose (70-105) mg/dL Calculated Osmolality (280-300) Calcium (8.6-10.3) mg/dL Troponin I (< 0.04) ng/mL Urine Color Yellow (Yellow) Urine Clarity Clear (Clear) Urine pH 7.5 (5.0-8.0) pH Units Ur Specific [place] 1.005 L (1.010-1.025) Urine Protein Trace (Neg-Trace) mg/dL Urine Glucose (UA) Normal (Normal) mg/dL Urine Ketones Negative (Negative) mg/dL Urine Blood Negative (Negative) Urine Nitrite Negative (Negative) Urine Bilirubin Negative (Negative) Urine Urobilinogen Normal (Normal) mg/dL Ur Leukocyte Esterase Negative (Negative) Ur Culture Indicated? NO (NO) - Radiology Data Radiology results reviewed: Yes I reviewed the patient's radiology results. Chest X-Ray 10/23/18 19:40 IMPRESSION: Mild left basilar airspace disease, atelectasis versus pneumonia. D/ / Lester Toney MD / Lester Toney MD Interpreting Provider: Lester Toney MD - EKG Data EKG #1 EKG attestation: Yes I reviewed and interpreted this EKG. EKG results narrative: EKG shows atrial fibrillation with ventricular rate of 94. No significant ST segment elevation or depression. Critical Care Time Critical Care Time: Yes Total Critical Care Time: 35 Attestation: Critical care performed: Time is exclusive of separately billable procedures. Time includes: direct patient care, patient reassessment, coordination of patient care, interpretation of data (laboratory data, radiology data, and respiratory data), review of patient's medical records, medical consultation and documentation of patient care. Procedures included in critical care time: Procedures excluded from critical care time: Attestation Statement - Attestation Attestation: I, Riki Barrientos MD, personally evaluated this patient and discussed their management with the resident physician. I reviewed the resident's note and agree with the documented findings, medical decision making, and plan of care. I reviewed the residents documentation and agree with the residents assessment and plan of care. I have personally had face to face time with the patient. I personally supervised and was present for the mckeon/critical portions of the following procedures completed by the resident: EKG interpretation. 83-year-old male presents to the emergency department with a complaint of increasing cough and shortness of breath with generalized weakness over the past 2 weeks. Some chest pain with coughing. Some chills and subjective fever but no measured fever. Intermittent sputum production which is white is sometimes yellow color. No hemoptysis. Patient has history of chronic atrial fibrillation and is on Coumadin. He denies prior history of breathing problems. On examination patient is a well-developed thin elderly male in mild respiratory distress. He is alert and oriented 3. There is no cyanosis or diaphoresis. He does have mildly labored respirations with some retractions. Breath sounds are markedly decreased bilaterally. No definite rales or wheezes noted. Heart irregularly irregular with a normal rate. Abdomen soft and nontender with normal bowel sounds. Labs reviewed. Chest x-ray shows left basilar airspace disease. EKG shows atrial fibrillation with ventricular rate of 94. No significant ST segment elev ation or depression. Blood cultures obtained and IV antibiotics initiated. The hospitalist, Dr. Ruby, was consulted and accepted admission of the patient.
[2018-10-23 21:53] LABS: Bilirubin,Urine Negative (Negative); Blood,Urine Negative (Negative); Clarity,Urine Clear (Clear); Color,Urine Yellow (Yellow); Glucose,Urine (UA) Normal (Normal); Ketones,Urine Negative (Negative); Leukocyte Esterase,Urine Negative (Negative); Nitrite,Urine Negative (Negative); PH,Urine 7.5 pH Units (5.0-8.0); Protein,Urine Trace mg/dL (Neg-Trace); Specific Gravity,Urine 1.005 (1.010-1.025); Urobilinogen,Urine Normal (Normal)
[2018-10-23 21:55] LABS: INR 2.8; Prothrombin Time 31.9 Seconds (9.4-12.1)
[2018-10-23] MEDS ORDERED: Azithromycin 500 MG in D5% in Water 250 ML IVPB ONE (22:09)
[2018-10-23] MEDS ORDERED: *HR* FentaNYL (PF) 100 MCG/2 ML VIAL IVP ONE (22:11)
[2018-10-23] MEDS: cefTRIAXone 1,000 MG in Water for inj. (sterile) 10 ML IVP SCH (22:56)
[2018-10-23] MEDS ORDERED: cefTRIAXone 1,000 MG in Water for inj. (sterile) 10 ML IVP SCH (23:00)
[2018-10-23] MEDS ORDERED: Nitroglycerin 0.4 MG TAB.SUBL SL PRN (23:29)
[2018-10-23] MEDS ORDERED: Acetaminophen 325 MG TABLET PO PRN (23:31)
[2018-10-23] MEDS ORDERED: Naloxone 0.4 MG/ML INJ IVP PRN (23:31)
[2018-10-23] MEDS ORDERED: traMADol 50 MG TABLET PO PRN (23:31)
[2018-10-23] MEDS ORDERED: *HR* OxyCODONE Immed Rel 5 MG TABLET PO PRN (23:31)
[2018-10-23] MEDS ORDERED: Isovue-370 500 ML BOTTLE IVP ONE (23:32)
[2018-10-23] MEDS ORDERED: Ipratropium/Albuterol Neb 3 ML IH PRN (23:32)
--- NOTE | 2018-10-23 23:54 | Internal Med History&Physical ---
Date of Encounter: 10/23/18 Time of Encounter: 23:53 Internal Medicine - H&P: HPI Chief complaint: chest pain Admitted From: Home Plans for Post Hospital Care: Home History of present illness: Shar Landry is an 83 year old man with coronary artery disease, atrial fibrillation, hypertension and chronic hyponatremia who presents to the emergency room complaining of increasing dyspnea and cough productive of scant clear to yellowish sputum for the past 2 weeks associated with chest discomfort, chills and subjective fever. He localizes the pain to his left precordium and describes it as sharp and worsened by his cough and deep breaths making him have to hold his chest down when he coughs. It is reported he had mild respiratory distress on arrival so was given systemic steroids, nebulizer, fentanyl and aspi rin. Lab work revealed WBC 13.6 and Na 126. CXR report was concerning for a left lower lobe infiltrate that is hard to visualize on my review. EKG reveals rate controlled atrial fibrillation. He was started on ceftriaxone and azithromycin and is admitted for further care. Vitals: Reviewed General: Well-appearing elderly man sitting up in bed in no acute distress. Skin: Warm, diaphoretic and his back drenched in sweat. HEENT: Moist mucous membranes. No conjunctivae pallor. Neck: No lymphadenopathy. No JVD. No carotid bruits. No palpable thyroid. Chest: Reduced thoracic expansion. Diminished breath sounds. No wheezes rales or rhonchi. Heart: Irregularly irregular. Abdomen: Non-distended, soft and non-tender to palpation. No peritoneal reaction. Extremities: No clubbing, cyanosis or edema. No calf tenderness. Normal distal pulses. Neurological: Awake, alert and oriented to person, place and time. No focal deficits. Psych: Affect appropriate. Assessment/Plan 1. Community acquired pneumonia: Suspected based on 2 weeks of respiratory symptoms, leukocytosis and the finding of a left sided infiltrate which correlates with where he has pleuritic chest pain. Given the associated hyponatremia, will test him for Legionella. Antibiotic coverage for this entity and other atypical microbes are drugs that all interfere with warfarin metabolism with the risk of INR increase therefore this should be monitored closely. The severity of his pleurit 2. Pleuritic chest pain: No signs of ACS on EKG and serum troponin is negative. While it may be from his pneumonia, I will like to ensure he does not have a PE causing infarction as the severity of the pain is too bothersome and seemingly out of proportion to the degree of infiltrate reported on x-ray. 3. Hyponatremia: He has a history of this but this time is definitely worse than his usual trend. Suspect hypovolemic in etiology given the concomitant hypochloremia. Will resuscitate with IV NS and recheck. Also ruling out Legionella as a factor. 4. Atrial fibrillation: Rate controlled and INR is therapeutic. Will continue warfarin to be dosed by pharmacy especially while on antibiotics. 5. Hypertension: Within normal limits. Continue daily Lisinopril. 6. Coronary artery disease: Continue daily aspirin. 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 Psychiatric history: no psych history - Past Surgical History Surgical History: angioplasty/stent, other Additional surgical history: back surgery - Social History Smoking Status: Former smoker Smokeless Tobacco Status: No Alcohol use: none Drug use: none - Family History Mother Living Status: Hx Family Cardiac Disorders: Yes (CHF) Hx Family Respiratory Disorders: No Hx Family Cancer: No Hx Family GI Disorders: No Hx Family Endocrine Disorder: No Hx Family Neuromuscular Disorders: No Hx Family Neurologic Disorders: No Hx Family HEENT Disorders: No Hx Family Autoimmune Disorders: No Father Living Status: Hx Family Cardiac Disorders: No Hx Family Respiratory Disorders: Yes (unknown) Hx Family Cancer: No Hx Family GI Disorders: No Hx Family Endocrine Disorder: No Hx Family Neuromuscular Disorders: No Hx Family Neurologic Disorders: No Hx Family HEENT Disorders: No Hx Family Autoimmune Disorders: No Internal Medicine - H&P: Meds Aspirin 81 mg PO DAILY #30 tab.chew 08/16/15 [Rx] Lisinopril [Zestril] 5 mg PO DAILY #30 tablet 08/16/15 [Rx] Niacin [Niacor] 500 mg PO BID 01/17/16 [History] Warfarin [Coumadin] 5 mg PO DAILY 01/17/16 [History] Nitroglycerin 0.4 mg SL Q5MIN PRN #30 tab.subl 01/18/16 [Rx] Allergy/AdvReac Type Severity Reaction Status Date / Time Penicillins Allergy Hives Verified 10/23/18 19:41 All Systems PM: A 10-system review of systems was performed and is negative for pertinent findings except as documented above in the HPI. - Constitutional Vitals: Temp Pulse Resp BP Pulse Ox 98.3 F 84 16 110/59 99 10/23/18 19:48 10/23/18 23:45 10/23/18 23:45 10/23/18 23:45 10/23/18 23:45 Exam: . Internal Med - H&P Results - Labs CBC & Chem 7: 10/23/18 19:55 10/23/18 19:55 Labs: Short CBC 10/23/18 Range/Units 19:55 WBC 13.6 H (4.3-11.1) K/mcL Hgb 12.1 L (12.9-16.9) g/dL Hct 34.3 L (37.5-50.1) % Plt Count 161 (140-400) K/mcL Neutrophils # 9.7 H (1.6-8.9) K/mcL BMP 10/23/18 19:55 Sodium 126 L Potassium 4.1 Chloride 92 L Carbon Dioxide 26 BUN 16 Creatinine 0.76 Glucose 135 H Calcium 9.3 Cardiac Enzymes 10/23/18 Range/Units 19:55 Troponin I < 0.03 (< 0.04) ng/mL Urine 10/23/18 Range/Units 21:18 Urine Color Yellow (Yellow) Urine Clarity Clear (Clear) Urine pH 7.5 (5.0-8.0) pH Units Ur Specific [place] 1.005 L (1.010-1.025) Urine Protein Trace (Neg-Trace) mg/dL Urine Glucose (UA) Normal (Normal) mg/dL - Impressions ITS Impressions Chest X-Ray 10/23/18 19:40 IMPRESSION: Mild left basilar airspace disease, atelectasis versus pneumonia. D/ / Lester Toney MD / Lester Toney MD Interpreting Provider: Lester Toney MD - Time Spent With Patient Total time spent is greater than 50% in coordination of care (as documented) at patient's floor/unit and/or counseling patient: Greater than 35 minutes
[2018-10-24] MEDS: 0.9 % Sodium Chloride 1,000 ML IVC SCH ×2 (01:29→10:34)
[2018-10-24] MEDS: Aspirin 81 MG TAB.CHEW PO SCH (07:35)
[2018-10-24] MEDS: Finasteride 5 MG TABLET PO SCH (07:35)
[2018-10-24] MEDS: cefTRIAXone 1,000 MG in Water for inj. (sterile) 10 ML IVP SCH (07:35)
--- NOTE | 2018-10-24 08:33 | Internal Med Progress Note ---
Hospitalist Progress Note - Encounter Date of Encounter: 10/24/18 Time of Encounter: 08:31 - Subjective Interval History: the patient was seen and examined at bedside. states breathing and cough is better no fever has yellow sputum denied chest pain no nausea or vomiting - Exam Vitals: Temp Pulse Resp BP Pulse Ox 97.5 F L 73 16 116/69 98 10/24/18 06:45 10/24/18 06:45 10/24/18 06:45 10/24/18 06:45 10/24/18 07:45 Exam: Physical examination: Gen.: Patient is alert and oriented, not in respiratory distress of pain HEENT: perrla , EOMI, no thyroid gland enlargement, no neck mass, supple neck Heart: S1 and S2 hiram, normal sinus rhythm, no cardiac murmur no gallop rhythm Chest: Air entry equal bilaterally, clear chest, diminished breathing bilaterally Abdomen: Soft nontender nondistended positive bowel sounds, no organomegaly Extremities: No pitting edema, peripheral pulses palpable, no cyanosis tenderness Neuro: Able to move all 4 limbs, no focal neurological deficit. - Assessment and Plan (1) Pneumonia Current Visit: Yes Status: Acute Assessment and Plan: Community aquired pneumonia with respiratory symptoms no evidence of PE on CTA chest continue on iv levofloxacin follow sputum culture, blood culture and leginella , pneumococcal and mycoplasma serology check serum procal today labs still pending (2) Hyponatremia Current Visit: Yes Status: Acute Assessment and Plan: yesterday serum Na was 126 likley due to poor oral intake on iv fluid today lab still pending monitor serum Na (3) Atrial fibrillation Current Visit: No Status: Chronic Assessment and Plan: rate controlled correct serum electrolytes on warfarin for stroke PPX on telemetry (4) CAD (coronary artery disease) Current Visit: No Status: Chronic Assessment and Plan: on baby aspirin patient denied chest pain today morning troponin negative no PE on CTA chest (5) HTN (hypertension) Current Visit: No Status: Chronic Assessment and Plan: BP acceptable on current management DVT Prophylaxis: warfarin - Time Spent with Patient Total time spent is greater than 50% in coordination of care (as documented) at patient's floor/unit and/or counseling patient: Plan of Care Discussed with: patient Internal Medicine: Result - Labs CBC & Chem 7: 10/23/18 19:55 10/23/18 19:55 Labs: Short CBC 10/23/18 Range/Units 19:55 WBC 13.6 H (4.3-11.1) K/mcL Hgb 12.1 L (12.9-16.9) g/dL Hct 34.3 L (37.5-50.1) % Plt Count 161 (140-400) K/mcL Neutrophils # 9.7 H (1.6-8.9) K/mcL BMP 10/23/18 19:55 Sodium 126 L Potassium 4.1 Chloride 92 L Carbon Dioxide 26 BUN 16 Creatinine 0.76 Glucose 135 H Calcium 9.3 Cardiac Enzymes 10/23/18 Range/Units 19:55 Troponin I < 0.03 (< 0.04) ng/mL Urine 10/23/18 Range/Units 21:18 Urine Color Yellow (Yellow) Urine Clarity Clear (Clear) Urine pH 7.5 (5.0-8.0) pH Units Ur Specific [place] 1.005 L (1.010-1.025) Urine Protein Trace (Neg-Trace) mg/dL Urine Glucose (UA) Normal (Normal) mg/dL - ABG Interpretation ABG results: PT/INR, D-dimer PT 31.9 Seconds (9.4-12.1) H 10/23/18 19:55 - Impressions Impressions Chest X-Ray 10/23/18 19:40 IMPRESSION: Mild left basilar airspace disease, atelectasis versus pneumonia. D/ / Lester Toney MD / Lester Toney MD Interpreting Provider: Lester Toney MD Chest CTA 10/24/18 23:32 IMPRESSION: No evidence of PE. Scattered bilateral airspace disease favored to represent pneumonia. Consider short follow-up CT in 3 months to ensure resolution. Innumerable low-density foci throughout the spine which could represent findings of osteopenia, though multiple myeloma remains possibility. Correlate with history. D/ / Mir Blackburn MD / Mir Blackburn MD Interpreting Provider: Mir Blackburn MD Consult Discharge Plan - Plan Referrals: Zeke Dorantes Jr, MD [Primary Care Provider] - (1) Pneumonia Qualifiers: Pneumonia type: due to unspecified organism Laterality: left Lung location: lower lobe of lung Qualified Code(s): J18.1 - Lobar pneumonia, unspecified organism (3) Atrial fibrillation Qualifiers: Atrial fibrillation type: chronic Qualified Code(s): I48.2 - Chronic atrial fibrillation (4) CAD (coronary artery disease) Qualifiers: Coronary Disease-Associated Artery/Lesion type: [place] artery [place] vs. transplanted heart: [place] heart Associated angina: without angina Qualified Code(s): I25.10 - Atherosclerotic heart disease of [place] coronary artery without angina pectoris (5) HTN (hypertension) Qualifiers: Hypertension type: essential hypertension Qualified Code(s): I10 - Essential (primary) hypertension
[2018-10-24] MEDS ORDERED: levoFLOXacin 500 MG/100 ML 500 MG/100 ML BAG IVPB SCH (09:00)
[2018-10-24 10:17] LABS: Basophils % 0.1 %; Hematocrit 34.8 % (37.5-50.1); Hemoglobin 12.1 g/dL (12.9-16.9); Immature Granulocytes % 0.5 % (0-4); Lymphocytes # 2.4 K/mcL (0.6-4.6); Lymphocytes % 19.7 %; Mean Corpuscular HGB Conc 34.8 g/dL (31.6-35.5); Mean Corpuscular Hemoglobin 33.5 pg (28.0-33.3); Mean Corpuscular Volume 96.4 fL (83.0-100.0); Mean Platelet Volume 8.5 fL (9.4-12.4); Monocytes # 0.2 K/mcL (0.0-1.3); Monocytes % 1.6 %; Neutrophils # 9.6 K/mcL (1.6-8.9); Platelet Count 164 K/mcL (140-400); Red Blood Count 3.61 M/mcL (4.19-5.50); Red Cell Distribution Width 15.4 % (11.5-14.5); Segmented Neutrophils % 78.1 %; White Blood Count 12.2 K/mcL (4.3-11.1)
[2018-10-24 10:24] LABS: INR 3.1; Prothrombin Time 35.3 Seconds (9.4-12.1)
[2018-10-24 10:37] LABS: Alanine Aminotransferase 21 Units/L (7-52); Albumin/Globulin Ratio 1.3 (1.1-2.2); Alkaline Phosphatase 80 Units/L (34-104); Aspartate Amino Transferase 28 Units/L (13-39); BUN/Creatinine Ratio 21 (6-26); Bilirubin,Total 0.7 mg/dL (0.3-1.0); Blood Urea Nitrogen 16 mg/dL (8-23); Calcium 9.8 mg/dL (8.6-10.3); Carbon Dioxide 26 mEq/L (23-29); Chloride 92 mEq/L (98-107); Glucose 228 mg/dL (70-105); Magnesium 1.6 mg/dL (1.6-2.6); Osmolality,Calculated 272 (280-300); Phosphorous 2.3 mg/dL (2.7-4.5); Potassium 3.8 mEq/L (3.5-5.1); Sodium 127 mEq/L (136-145); eGFR For African Americans > 60 (> 60); eGFR For Non-African Americans > 60 (> 60)
[2018-10-24] MEDS ORDERED: *HR* Warfarin 5 MG TABLET PO SCH (18:00)
[2018-10-24] MEDS ORDERED: Warfarin perPT PO PRN (18:00)
[2018-10-25 07:40] LABS: Hematocrit 33.6 % (37.5-50.1); Hemoglobin 11.5 g/dL (12.9-16.9); Mean Corpuscular HGB Conc 34.2 g/dL (31.6-35.5); Mean Corpuscular Volume 96.6 fL (83.0-100.0); Mean Platelet Volume 8.8 fL (9.4-12.4); Platelet Count 163 K/mcL (140-400); Red Blood Count 3.48 M/mcL (4.19-5.50); Red Cell Distribution Width 15.6 % (11.5-14.5)
[2018-10-25 07:47] LABS: INR 3.3; Prothrombin Time 38.1 Seconds (9.4-12.1)
[2018-10-25 07:56] LABS: Alanine Aminotransferase 20 Units/L (7-52); Albumin 3.4 g/dL (3.5-5.7); Albumin/Globulin Ratio 1.4 (1.1-2.2); Alkaline Phosphatase 68 Units/L (34-104); Aspartate Amino Transferase 29 Units/L (13-39); BUN/Creatinine Ratio 26 (6-26); Bilirubin,Total 0.6 mg/dL (0.3-1.0); Blood Urea Nitrogen 19 mg/dL (8-23); Calcium 9.4 mg/dL (8.6-10.3); Carbon Dioxide 25 mEq/L (23-29); Chloride 99 mEq/L (98-107); Globulin 2.4 g/dL (2.4-3.5); Glucose 129 mg/dL (70-105); Magnesium 1.8 mg/dL (1.6-2.6); Osmolality,Calculated 280 (280-300); Phosphorous 2.9 mg/dL (2.7-4.5); Potassium 4.5 mEq/L (3.5-5.1); Sodium 133 mEq/L (136-145); Total Protein 5.8 g/dL (6.4-8.9); eGFR For African Americans > 60 (> 60); eGFR For Non-African Americans > 60 (> 60)
--- NOTE | 2018-10-25 08:20 | Internal Med Progress Note ---
Hospitalist Progress Note - Encounter Date of Encounter: 10/25/18 Time of Encounter: 08:18 - Subjective Interval History: patient seen and examined he is feeling better, on RA, still has dry cough, unalbe to cough up any sputum he is afebrile, WBC trending down, but hyponatremia got worse, discussed water restriction add salt pill - Exam Vitals: Temp Pulse Resp BP Pulse Ox 98.3 F 68 16 140/80 96 10/25/18 06:40 10/25/18 06:40 10/25/18 06:40 10/25/18 06:40 10/25/18 06:40 Exam: Physical examination: Gen.: Patient is alert and oriented, not in respiratory distress of pain HEENT: perrla , EOMI, no thyroid gland enlargement, no neck mass, supple neck Heart: S1 and S2 hiram, normal sinus rhythm, no cardiac murmur no gallop rhythm Chest: Air entry equal bilaterally, clear chest, diminished breathing bilaterally Abdomen: Soft nontender nondistended positive bowel sounds, no organomegaly Extremities: No pitting edema, peripheral pulses palpable, no cyanosis tenderness Neuro: Able to move all 4 limbs, no focal neurological deficit. DVT Prophylaxis: warfarin - Summary of Assessment and Plan Summary of Assessment and Plan: Shar Landry is an 83 year old man with coronary artery disease, atrial fibrillation, hypertension and chronic hyponatremia who presents to the emergency room complaining of increasing dyspnea and cough productive of scant clear to yellowish sputum for the past 2 weeks associated with chest discomfort, chills and subjective fever. He localizes the pain to his left precordium and describes it as sharp and worsened by his cough and deep breaths making him have to hold his chest down when he coughs. It is reported he had mild respiratory distress on arrival so was given systemic steroids, nebulizer, fentanyl and aspirin. Lab work revealed WBC 13.6 and Na 126. CXR report was concerning for a left lower lobe infiltrate that is hard to visualize on my review. EKG reveals rate controlled atrial fibrillation. He was started on ceftriaxone and azithromycin and is admitted for further care. He was admitted on 10/23 for pneumonia and Hyponatremai (1) possible atypical bacterial Pneumonia Current Visit: Yes Status: Acute Assessment and Plan: Community aquired pneumonia with respiratory symptoms no evidence of PE on CTA chest continue on iv levofloxacin negative legionella (2) Hyponatremia with elevated urine Osmo 483, sodium 58, likley SIADH, will place fluid restriction, add salt pills. Current Visit: Yes Status: Acute Assessment and Plan: yesterday serum Na was 126 likley due to poor oral intake d/c IVF (3) chronic Atrial fibrillation Current Visit: No Status: Chronic Assessment and Plan: rate controlled correct serum electrolytes on warfarin for stroke PPX on telemetry (4) CAD (coronary artery disease) Current Visit: No Status: Chronic Assessment and Plan: on baby aspirin patient denied chest pain today morning troponin negative no PE on CTA chest (5) HTN (hypertension) on lisinopril (6) sepsis with HR107 and WBC 13.6 POA from pneumonia Current Visit: No Status: Chronic Assessment and Plan: BP acceptable on current management DVT Prophylaxis: warfarin Disposition: possible discharge tomorrow, if BC negative sodium improves - Time Spent with Patient Total time spent is greater than 50% in coordination of care (as documented) at patient's floor/unit and/or counseling patient: 25 - 35 minutes Plan of Care Discussed with: patient Internal Medicine: Result - Labs CBC & Chem 7: 10/25/18 07:11 10/25/18 07:11 Labs: Short CBC 10/24/18 10/25/18 Range/Units 10:07 07:11 WBC 12.2 H 14.0 H (4.3-11.1) K/mcL Hgb 12.1 L 11.5 L (12.9-16.9) g/dL Hct 34.8 L 33.6 L (37.5-50.1) % Plt Count 164 163 (140-400) K/mcL Neutrophils # 9.6 H (1.6-8.9) K/mcL BMP 10/24/18 10/25/18 10:07 07:11 Sodium 127 L 133 L Potassium 3.8 4.5 Chloride 92 L 99 Carbon Dioxide 26 25 BUN 16 19 Creatinine 0.75 0.73 Glucose 228 H 129 H Calcium 9.8 9.4 Liver Function 10/24/18 10/25/18 Range/Units 10:07 07:11 Total Bilirubin 0.7 0.6 (0.3-1.0) mg/dL AST 28 29 (13-39) Units/L ALT 21 20 (7-52) Units/L Alkaline Phosphatase 80 68 (34-104) Units/L Albumin 4.0 3.4 L (3.5-5.7) g/dL - ABG Interpretation ABG results: PT/INR, D-dimer PT 38.1 Seconds (9.4-12.1) H 10/25/18 07:11 Consult Discharge Plan - Plan Referrals: Zeke Dorantes Jr, MD [Primary Care Provider] -
[2018-10-25] MEDS: levoFLOXacin 750 MG/150 ML 750 MG/150 ML BAG IVPB SCH (09:54)
[2018-10-25] MEDS: Aspirin 81 MG TAB.CHEW PO SCH (09:55)
[2018-10-25] MEDS: cefTRIAXone 1,000 MG in Water for inj. (sterile) 10 ML IVP SCH (09:55)
[2018-10-25] MEDS: Finasteride 5 MG TABLET PO SCH (09:55)
--- NOTE | 2018-10-25 11:27 | Electrocardiograph Report ---
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
[2018-10-26 05:27] LABS: Basophils % 0.1 %; Eosinophils % 0.5 %; Hematocrit 36.4 % (37.5-50.1); Hemoglobin 12.4 g/dL (12.9-16.9); Immature Granulocytes % 0.6 % (0-4); Lymphocytes # 2.4 K/mcL (0.6-4.6); Lymphocytes % 27.8 %; Mean Corpuscular HGB Conc 34.1 g/dL (31.6-35.5); Mean Corpuscular Hemoglobin 33.1 pg (28.0-33.3); Mean Corpuscular Volume 97.1 fL (83.0-100.0); Monocytes # 0.4 K/mcL (0.0-1.3); Monocytes % 4.2 %; Neutrophils # 5.8 K/mcL (1.6-8.9); Platelet Count 193 K/mcL (140-400); Red Blood Count 3.75 M/mcL (4.19-5.50); Red Cell Distribution Width 15.6 % (11.5-14.5); Segmented Neutrophils % 66.8 %; White Blood Count 8.7 K/mcL (4.3-11.1)
[2018-10-26 05:30] LABS: INR 3.2; Prothrombin Time 36.5 Seconds (9.4-12.1)
[2018-10-26 05:43] LABS: BUN/Creatinine Ratio 26 (6-26); Blood Urea Nitrogen 22 mg/dL (8-23); Calcium 9.3 mg/dL (8.6-10.3); Carbon Dioxide 26 mEq/L (23-29); Chloride 100 mEq/L (98-107); Glucose 105 mg/dL (70-105); Magnesium 1.8 mg/dL (1.6-2.6); Osmolality,Calculated 284 (280-300); Potassium 4.4 mEq/L (3.5-5.1); Sodium 135 mEq/L (136-145); eGFR For African Americans > 60 (> 60); eGFR For Non-African Americans > 60 (> 60)
[2018-10-26 07:10] VITALS: BP 139/79
--- NOTE | 2018-10-26 08:36 | Discharge Summary ---
Orders not resulted at time of discharge: Pending orders 10/23/18 22:04 Culture,Blood [BC] Stat 10/24/18 13:38 Sputum Culture [Culture,Sputum with Gram Stain] [RM] Routine 10/27/18 04:00 PT/INR [Prothrombin Time INR] [COAG] AM 0400 10/28/18 04:00 PT/INR [Prothrombin Time INR] [COAG] AM 0400 10/29/18 04:00 PT/INR [Prothrombin Time INR] [COAG] AM 0400 10/30/18 04:00 PT/INR [Prothrombin Time INR] [COAG] AM 0400 Date of Encounter: 10/26/18 Time of Encounter: 08:33 Hospital course: Mr. Landry is a 83 year old male Shar Landry is an 83 year old man with coronary artery disease, atrial fibrillation, hypertension and chronic hyponatremia who presents to the emergency room complaining of increasing dyspnea and cough productive of scant clear to yellowish sputum for the past 2 weeks associated with chest discomfort, chills and subjective fever. He localizes the pain to his left precordium and describes it as sharp and worsened by his cough and deep breaths making him have to hold his chest down when he coughs. It is reported he had mild respiratory distress on arrival so was given systemic steroids, nebulizer, fentanyl and aspirin. Lab work revealed WBC 13.6 and Na 126. CXR report was concerning for a left lower lobe infiltrate that is hard to visualize on my review. EKG reveals rate controlled atrial fibrillation. He was started on ceftriaxone and azithromycin and is admitted for further care. He was admitted on 10/23 for pneumonia and Hyponatremia (1) possible atypical bacterial Pneumonia, patient is doing well, afebrile, normal WBC, on RA Current Visit: Yes Status: Acute Assessment and Plan: Community aquired pneumonia with respiratory symptoms no evidence of PE on CTA chest continue on iv levofloxacin negative legionella and strep discharge on levaquin, follow up PCP (2) Hyponatremia with elevated urine Osmo 483, sodium 58, likley SIADH, will place fluid restriction, add salt pills. Current Visit: Yes Status: Acute Assessment and Plan: yesterday serum Na was 126 likley due to poor oral intake improved, discussed to cut down the fluid intake (3) chronic Atrial fibrillation Current Visit: No Status: Chronic Assessment and Plan: rate controlled correct serum electrolytes on warfarin for stroke PPX on telemetry (4) CAD (coronary artery disease) Current Visit: No Status: Chronic Assessment and Plan: on baby aspirin patient denied chest pain today morning troponin negative no PE on CTA chest (5) HTN (hypertension) on lisinopril (6) sepsis with HR107 and WBC 13.6 POA from pneumonia, resolved at discharge Current Visit: No Status: Chronic Assessment and Plan: BP acceptable on current management discharge on stable condition Discharge discussed with: patient Time spent discussing smoking cessation with patient: 3 to 10 minutes - Time Spent with Patient Total time spent providing and/or coordinating discharge services: Time spent: Less than 30 minutes - Discharge Medications Prescriptions: New levoFLOXacin [Levaquin] 750 mg PO DAILY #7 tablet Continued Aspirin 81 mg PO DAILY #30 tab.chew Lisinopril [Zestril] 5 mg PO DAILY #30 tablet Warfarin [Coumadin] 5 mg PO DAILY Nitroglycerin 0.4 mg SL Q5MIN PRN #30 tab.subl PRN Reason: Chest Pain Ascorbic Acid [Vitamin C] 500 mg PO DAILY Ferrous Sulfate [Iron] 325 mg PO DAILY Niacin [Plain Niacin] 500 mg PO BID Home Medications: Aspirin 81 mg PO DAILY #30 tab.chew 08/16/15 [Rx] Lisinopril [Zestril] 5 mg PO DAILY #30 tablet 08/16/15 [Rx] Warfarin [Coumadin] 5 mg PO DAILY 01/17/16 [History] Nitroglycerin 0.4 mg SL Q5MIN PRN #30 tab.subl 01/18/16 [Rx] Ascorbic Acid [Vitamin C] 500 mg PO DAILY 10/24/18 [History] Ferrous Sulfate [Iron] 325 mg PO DAILY 10/24/18 [History] Niacin [Plain Niacin] 500 mg PO BID 10/24/18 [History] levoFLOXacin [Levaquin] 750 mg PO DAILY #7 tablet 10/26/18 [Rx] Allergies/Adverse Reactions: Allergy/AdvReac Type Severity Reaction Status Date / Time Penicillins Allergy Hives Verified 10/24/18 14:07 Date of admission: 10/23/18 23:18 Primary care physician: Zeke Dorantes Jr, MD Consults: 10/25/18 07:58 Consult to Nurse Navigator [CONS] Routine Comment: pn - Constitutional Vitals: Temp Pulse Resp BP Pulse Ox 98.0 F 81 16 139/79 98 10/26/18 07:06 10/26/18 07:06 10/26/18 07:06 10/26/18 07:06 10/26/18 07:06 General appearance: Present: A&O X 3, pleasant Exam: Physical examination: Gen.: Patient is alert and oriented, not in respiratory distress of pain HEENT: perrla , EOMI, no thyroid gland enlargement, no neck mass, supple neck Heart: S1 and S2 hiram, normal sinus rhythm, no cardiac murmur no gallop rhythm Chest: Air entry equal bilaterally, clear chest, diminished breathing bilaterally Abdomen: Soft nontender nondistended positive bowel sounds, no organomegaly Extremities: No pitting edema, peripheral pulses palpable, no cyanosis tenderness Neuro: Able to move all 4 limbs, no focal neurological deficit. - Patient Status Disposition: Home, Self-Care Condition: Good Functional capacity at discharge: independent ambulation Overall status at discharge: patient is back to baseline - Discharge Instructions Follow Up With: Zeke Dorantes Jr, MD [Primary Care Provider] - - Diet and Activity Diet: advance to your usual diet
[2018-10-26] MEDS: levoFLOXacin 750 MG/150 ML 750 MG/150 ML BAG IVPB SCH (08:48)
[2018-10-26] MEDS: Aspirin 81 MG TAB.CHEW PO SCH (08:49)
[2018-10-27] MEDS ORDERED: levoFLOXacin 750 MG TABLET PO SCH (09:00)
== END 2018-10-26 10:33 | disposition home or self-care (01) ==
LOC: EMEROOARM 19:35 → 2ANU 19:35 → SUATTDRO 23:18 → 2ANU 10-24 00:05
PROVIDERS: ADMIT Internal Medicine; ATTEND Hospitalist

== ENCOUNTER 2019-04-16 21:26 | Observation (INO) ==
[2019-04-16] MEDS ORDERED: Isovue-370 500 ML BOTTLE IVP ONE (21:54)
[2019-04-16 22:26] LABS: INR 2.3; Prothrombin Time 26.7 Seconds (9.4-12.1)
[2019-04-16 22:27] LABS: Basophils % 0.3 %; Eosinophils # 0.2 K/mcL (0.0-0.6); Eosinophils % 1.4 %; Hematocrit 36.6 % (37.5-50.1); Hemoglobin 12.6 g/dL (12.9-16.9); Immature Granulocytes % 0.6 % (0-4); Lymphocytes # 1.3 K/mcL (0.6-4.6); Mean Corpuscular HGB Conc 34.4 g/dL (31.6-35.5); Mean Corpuscular Hemoglobin 34.2 pg (28.0-33.3); Mean Corpuscular Volume 99.5 fL (83.0-100.0); Mean Platelet Volume 9.2 fL (9.4-12.4); Monocytes # 0.6 K/mcL (0.0-1.3); Monocytes % 4.6 %; Neutrophils # 9.8 K/mcL (1.6-8.9); Platelet Count 145 K/mcL (140-400); Red Blood Count 3.68 M/mcL (4.19-5.50); Red Cell Distribution Width 14.9 % (11.5-14.5); Segmented Neutrophils % 82.1 %
[2019-04-16 22:49] LABS: Alanine Aminotransferase 17 Units/L (7-52); Albumin 4.2 g/dL (3.5-5.7); Albumin/Globulin Ratio 1.6 (1.1-2.2); Alkaline Phosphatase 83 Units/L (34-104); Amylase 42 Units/L (29-103); Aspartate Amino Transferase 31 Units/L (13-39); BUN/Creatinine Ratio 22 (6-26); Bilirubin,Direct 0.2 mg/dL (0.0-0.2); Bilirubin,Indirect 0.6 mg/dL (0.0-1.0); Bilirubin,Total 0.8 mg/dL (0.3-1.0); Blood Urea Nitrogen 20 mg/dL (8-23); Calcium 9.8 mg/dL (8.6-10.3); Carbon Dioxide 24 mEq/L (23-29); Chloride 96 mEq/L (98-107); Globulin 2.6 g/dL (2.4-3.5); Glucose 139 mg/dL (70-105); Lipase 17 Units/L (11-82); Osmolality,Calculated 273 (280-300); Potassium 3.8 mEq/L (3.5-5.1); Sodium 129 mEq/L (136-145); Total Protein 6.8 g/dL (6.4-8.9); Troponin I < 0.03 ng/mL (< 0.04); eGFR For African Americans > 60 (> 60); eGFR For Non-African Americans > 60 (> 60)
[2019-04-17] MEDS ORDERED: 0.9 % Sodium Chloride 1,000 ML IVC SCH (00:15)
[2019-04-17 00:28] LABS: INR 2.1; Prothrombin Time 24.3 Seconds (9.4-12.1)
[2019-04-17 00:31] LABS: Activated Partial Thrombo Time 35.6 Seconds (26.0-36.0)
[2019-04-17 00:32] LABS: Bilirubin,Urine Negative (Negative); Blood,Urine Negative (Negative); Clarity,Urine Clear (Clear); Color,Urine Yellow (Yellow); Glucose,Urine (UA) Normal (Normal); Ketones,Urine Negative (Negative); Leukocyte Esterase,Urine Negative (Negative); Nitrite,Urine Negative (Negative); PH,Urine 6.5 pH Units (5.0-8.0); Protein,Urine Negative (Neg-Trace); Specific Gravity,Urine > 1.030 (1.010-1.025); Urobilinogen,Urine Normal (Normal)
[2019-04-17] MEDS ORDERED: Naloxone 0.4 MG/ML INJ IVP PRN (04:45)
[2019-04-17 05:54] LABS: Hematocrit 35.9 % (37.5-50.1); Hemoglobin 12.6 g/dL (12.9-16.9); Mean Corpuscular HGB Conc 35.1 g/dL (31.6-35.5); Mean Corpuscular Hemoglobin 33.5 pg (28.0-33.3); Mean Corpuscular Volume 95.5 fL (83.0-100.0); Platelet Count 146 K/mcL (140-400); Red Blood Count 3.76 M/mcL (4.19-5.50); Red Cell Distribution Width 14.8 % (11.5-14.5)
[2019-04-17 06:13] LABS: BUN/Creatinine Ratio 22 (6-26); Blood Urea Nitrogen 17 mg/dL (8-23); Calcium 9.3 mg/dL (8.6-10.3); Carbon Dioxide 27 mEq/L (23-29); Chloride 97 mEq/L (98-107); Glucose 113 mg/dL (70-105); Osmolality,Calculated 276 (280-300); Potassium 3.8 mEq/L (3.5-5.1); Sodium 132 mEq/L (136-145); eGFR For African Americans > 60 (> 60); eGFR For Non-African Americans > 60 (> 60)
[2019-04-17] MEDS: Pantoprazole 40 MG VIAL IVP SCH ×2 (09:29→18:12)
[2019-04-17] MEDS: 0.9 % Sodium Chloride 1,000 ML IVC SCH (10:00)
[2019-04-17] MEDS ORDERED: *HR* Midazolam HCl 5 MG/5 ML VIAL IVP ONE ×2 (11:15→13:13)
[2019-04-17] MEDS ORDERED: *HR* FentaNYL (PF) 100 MCG/2 ML VIAL IVP ONE (11:15)
[2019-04-17] MEDS ORDERED: *HR* FentaNYL (PF) 100 MCG/2 ML VIAL ONE (13:12)
[2019-04-17 14:32] LABS: Hematocrit 35.9 % (37.5-50.1); Hemoglobin 12.6 g/dL (12.9-16.9)
[2019-04-17 20:08] LABS: Hematocrit 36.7 % (37.5-50.1)
[2019-04-18] MEDS: 0.9 % Sodium Chloride 1,000 ML IVC SCH (03:17)
[2019-04-18 05:06] LABS: Hematocrit 35.6 % (37.5-50.1); Hemoglobin 12.6 g/dL (12.9-16.9)
[2019-04-18] MEDS: Pantoprazole 40 MG VIAL IVP SCH (05:18)
[2019-04-18 05:25] LABS: BUN/Creatinine Ratio 13 (6-26); Blood Urea Nitrogen 10 mg/dL (8-23); Calcium 9.1 mg/dL (8.6-10.3); Carbon Dioxide 27 mEq/L (23-29); Chloride 103 mEq/L (98-107); Glucose 84 mg/dL (70-105); Osmolality,Calculated 278 (280-300); Potassium 4.1 mEq/L (3.5-5.1); Sodium 135 mEq/L (136-145); eGFR For African Americans > 60 (> 60); eGFR For Non-African Americans > 60 (> 60)
[2019-04-18] MEDS ORDERED: 0.9 % Sodium Chloride 500 ML IVC SCH (08:45)
[2019-04-18] MEDS ORDERED: Propofol 500 MG/50 ML INFUS..BTL ONE (11:01)
[2019-04-18] MEDS ORDERED: Lidocaine -MPF 2% 2 ML VIAL ONE (11:01)
[2019-04-18 13:15] LABS: INR 2.3; Prothrombin Time 25.8 Seconds (9.4-12.1)
[2019-04-18] MEDS ORDERED: *HR* Warfarin 5 MG TABLET PO ONE (18:00)
[2019-04-18] MEDS ORDERED: Warfarin perPT PO PRN (18:00)
[2019-04-18] MEDS: Acetaminophen 325 MG TABLET PO PRN (18:48)
[2019-04-19 06:33] LABS: INR 2.6
[2019-04-19 08:14] VITALS: BP 147/81
[2019-04-19] MEDS: Acetaminophen 325 MG TABLET PO PRN (08:24)
[2019-04-19] MEDS ORDERED: Niacin (24 HR) 500 MG TAB.ER.24H PO SCH (09:00)
[2019-04-19] MEDS ORDERED: Aspirin 81 MG TAB.CHEW PO SCH (09:00)
[2019-04-19] MEDS ORDERED: Magnesium Oxide 400 MG TABLET PO ONE (09:24)
== END 2019-04-19 11:46 | disposition home or self-care (01) ==
LOC: 3ANU 21:26 → EMEROOARM 21:26 → SUATTDRO 04-17 00:26 → 3ANU 04-17 01:04
PROVIDERS: ADMIT Family Medicine; ATTEND Internal Medicine
PROC: ENDOEBX (2019-04-17 14:00)

== ENCOUNTER 2020-12-13 09:05 | Observation (INO) ==
[2020-12-13] MEDS ORDERED: 0.9 % Sodium Chloride 500 ML IVC ONE (09:26)
[2020-12-13] MEDS ORDERED: Aspirin 81 MG TAB.CHEW PO ONE (09:26)
[2020-12-13 09:39] LABS: Basophils % 0.3 %; Eosinophils # 0.1 K/mcL (0.0-0.6); Eosinophils % 1.2 %; Hematocrit 35.6 % (37.5-50.1); Hemoglobin 12.3 g/dL (12.9-16.9); Immature Granulocytes % 0.4 % (0-4); Lymphocytes # 2.8 K/mcL (0.6-4.6); Lymphocytes % 36.3 %; Mean Corpuscular HGB Conc 34.6 g/dL (31.6-35.5); Mean Corpuscular Hemoglobin 33.5 pg (28.0-33.3); Monocytes # 0.6 K/mcL (0.0-1.3); Monocytes % 7.2 %; Neutrophils # 4.2 K/mcL (1.6-8.9); Platelet Count 143 K/mcL (140-400); Red Blood Count 3.67 M/mcL (4.19-5.50); Red Cell Distribution Width 13.5 % (11.5-14.5); Segmented Neutrophils % 54.6 %; White Blood Count 7.6 K/mcL (4.3-11.1)
[2020-12-13 10:00] LABS: Alanine Aminotransferase 15 Units/L (7-52); Albumin 4.1 g/dL (3.5-5.7); Albumin/Globulin Ratio 1.8 (1.1-2.2); Alkaline Phosphatase 76 Units/L (34-104); Aspartate Amino Transferase 27 Units/L (13-39); BUN/Creatinine Ratio 22 (6-26); Bilirubin,Direct 0.2 mg/dL (0.0-0.2); Bilirubin,Indirect 0.8 mg/dL (0.0-1.0); Blood Urea Nitrogen 21 mg/dL (8-23); Calcium 9.8 mg/dL (8.6-10.3); Carbon Dioxide 26 mEq/L (23-29); Chloride 98 mEq/L (98-107); Globulin 2.3 g/dL (2.4-3.5); Glucose 145 mg/dL (70-105); Osmolality,Calculated 280 (280-300); Potassium 3.8 mEq/L (3.5-5.1); Sodium 132 mEq/L (136-145); Total Protein 6.4 g/dL (6.4-8.9); eGFR For African Americans > 60 (> 60); eGFR For Non-African Americans > 60 (> 60)
[2020-12-13 10:31] LABS: Troponin I 0.05 ng/mL (< 0.04)
[2020-12-13 11:40] LABS: Lipase 14 Units/L (11-82)
[2020-12-13] MEDS ORDERED: Naloxone 0.4 MG/ML INJ IVP PRN (13:56)
[2020-12-13] MEDS ORDERED: Perflutren Lipid Microsphere 1.3 ML in 0.9 % Sodium Chloride 8.7 ML IVP PRN (14:15)
[2020-12-13] MEDS ORDERED: Nitroglycerin 0.4 MG TAB.SUBL SL PRN (16:03)
[2020-12-13] MEDS: Apixaban 2.5 MG TABLET PO SCH (21:15)
[2020-12-13] MEDS ORDERED: Acetaminophen 325 MG TABLET PO ONE (21:57)
[2020-12-14 02:06] LABS: Estimated Average Glucose 120 mg/dl; Hemoglobin A1C 5.8 %
[2020-12-14 02:17] LABS: BUN/Creatinine Ratio 23 (6-26); Blood Urea Nitrogen 18 mg/dL (8-23); Carbon Dioxide 24 mEq/L (23-29); Chloride 101 mEq/L (98-107); Chol/HDL Ratio 2.3 (0-4.9); Cholesterol 150 mg/dL (< 200); Glucose 98 mg/dL (70-105); HDL Cholesterol 64 mg/dL (40-59); LDL Cholesterol,Calculated 77 mg/dL (< 100); Osmolality,Calculated 276 (280-300); Potassium 3.8 mEq/L (3.5-5.1); Sodium 132 mEq/L (136-145); Triglycerides 46 mg/dL (< 150); eGFR For African Americans > 60 (> 60); eGFR For Non-African Americans > 60 (> 60)
[2020-12-14] MEDS: Apixaban 2.5 MG TABLET PO SCH ×2 (08:19→20:42)
[2020-12-14] MEDS: Finasteride 5 MG TABLET PO SCH (08:20)
[2020-12-14] MEDS: Aspirin Enteric Coated 81 MG Tablet PO SCH (08:20)
[2020-12-14] MEDS: lisinopriL 5 MG TABLET PO SCH (08:20)
[2020-12-14 23:35] LABS: Bilirubin,Urine Negative (Negative); Blood,Urine Negative (Negative); Clarity,Urine Clear (Clear); Color,Urine Light-Yellow (Yellow); Glucose,Urine (UA) Normal (Normal); Ketones,Urine Negative (Negative); Leukocyte Esterase,Urine Negative (Negative); Nitrite,Urine Negative (Negative); PH,Urine 6.5 pH Units (5.0-8.0); Protein,Urine Negative (Neg-Trace); Specific Gravity,Urine 1.011 (1.010-1.025); Urobilinogen,Urine Normal (Normal)
[2020-12-15 01:25] LABS: Basophils % 0.3 %; Red Cell Distribution Width 13.2 % (11.5-14.5)
[2020-12-15 01:27] LABS: Eosinophils # 0.1 K/mcL (0.0-0.6); Eosinophils % 1.7 %; Hematocrit 35.8 % (37.5-50.1); Hemoglobin 12.5 g/dL (12.9-16.9); Immature Granulocytes % 0.4 % (0-4); Immature Platelets 2.9 % (1.1-6.1); Lymphocytes # 1.7 K/mcL (0.6-4.6); Lymphocytes % 24.7 %; Mean Corpuscular HGB Conc 34.9 g/dL (31.6-35.5); Mean Corpuscular Hemoglobin 34.2 pg (28.0-33.3); Mean Corpuscular Volume 97.8 fL (83.0-100.0); Mean Platelet Volume 9.6 fL (9.4-12.4); Monocytes # 0.5 K/mcL (0.0-1.3); Neutrophils # 4.6 K/mcL (1.6-8.9); Platelet Count 146 K/mcL (140-400); Red Blood Count 3.66 M/mcL (4.19-5.50); Segmented Neutrophils % 65.9 %
[2020-12-15 01:44] LABS: BUN/Creatinine Ratio 22 (6-26); Blood Urea Nitrogen 17 mg/dL (8-23); Calcium 9.3 mg/dL (8.6-10.3); Carbon Dioxide 24 mEq/L (23-29); Chloride 101 mEq/L (98-107); Glucose 88 mg/dL (70-105); Magnesium 1.7 mg/dL (1.6-2.6); Osmolality,Calculated 277 (280-300); Potassium 3.8 mEq/L (3.5-5.1); Sodium 133 mEq/L (136-145); eGFR For African Americans > 60 (> 60); eGFR For Non-African Americans > 60 (> 60)
[2020-12-15] MEDS: Aspirin Enteric Coated 81 MG Tablet PO SCH (09:02)
[2020-12-15] MEDS: Finasteride 5 MG TABLET PO SCH (09:02)
[2020-12-15] MEDS: Apixaban 2.5 MG TABLET PO SCH ×2 (09:02→20:36)
[2020-12-15] MEDS: lisinopriL 5 MG TABLET PO SCH (09:02)
[2020-12-16 02:21] LABS: Basophils % 0.3 %; Hemoglobin 12.1 g/dL (12.9-16.9); Immature Granulocytes % 0.3 % (0-4); Monocytes % 8.6 %
[2020-12-16 02:23] LABS: Eosinophils # 0.1 K/mcL (0.0-0.6); Eosinophils % 1.7 %; Hematocrit 35.5 % (37.5-50.1); Lymphocytes # 1.9 K/mcL (0.6-4.6); Lymphocytes % 28.5 %; Mean Corpuscular HGB Conc 34.1 g/dL (31.6-35.5); Mean Corpuscular Hemoglobin 33.4 pg (28.0-33.3); Mean Corpuscular Volume 98.1 fL (83.0-100.0); Mean Platelet Volume 9.7 fL (9.4-12.4); Monocytes # 0.6 K/mcL (0.0-1.3); Platelet Count 146 K/mcL (140-400); Red Blood Count 3.62 M/mcL (4.19-5.50); Red Cell Distribution Width 13.4 % (11.5-14.5); Segmented Neutrophils % 60.6 %; White Blood Count 6.6 K/mcL (4.3-11.1)
[2020-12-16 02:41] LABS: % Iron Saturation 18 % (20-55); BUN/Creatinine Ratio 24 (6-26); Blood Urea Nitrogen 24 mg/dL (8-23); Calcium 9.4 mg/dL (8.6-10.3); Carbon Dioxide 24 mEq/L (23-29); Chloride 102 mEq/L (98-107); Glucose 108 mg/dL (70-105); Iron 59 mcg/dL (65-175); Magnesium 1.8 mg/dL (1.6-2.6); Osmolality,Calculated 281 (280-300); Potassium 4.4 mEq/L (3.5-5.1); Sodium 133 mEq/L (136-145); Transferrin 231 mg/dL (203-362); eGFR For African Americans > 60 (> 60); eGFR For Non-African Americans > 60 (> 60)
[2020-12-16 02:56] LABS: Ferritin 102 ng/mL (20-250)
[2020-12-16 03:01] LABS: Folate 18.4 ng/mL (3.0-16.0)
[2020-12-16] MEDS: Apixaban 2.5 MG TABLET PO SCH (08:45)
[2020-12-16] MEDS: lisinopriL 5 MG TABLET PO SCH (08:45)
[2020-12-16] MEDS: Aspirin Enteric Coated 81 MG Tablet PO SCH (08:45)
[2020-12-16] MEDS: Finasteride 5 MG TABLET PO SCH (08:45)
[2020-12-16] MEDS: Metoprolol XL (24 HR) Succ 25 MG TAB.ER.24H PO SCH (16:32)
[2020-12-17 06:30] LABS: Basophils % 0.3 %; Eosinophils # 0.1 K/mcL (0.0-0.6); Hematocrit 36.2 % (37.5-50.1); Hemoglobin 12.4 g/dL (12.9-16.9); Immature Granulocytes % 0.3 % (0-4); Lymphocytes # 1.9 K/mcL (0.6-4.6); Lymphocytes % 29.5 %; Mean Corpuscular HGB Conc 34.3 g/dL (31.6-35.5); Mean Corpuscular Hemoglobin 33.9 pg (28.0-33.3); Mean Corpuscular Volume 98.9 fL (83.0-100.0); Mean Platelet Volume 9.8 fL (9.4-12.4); Monocytes # 0.5 K/mcL (0.0-1.3); Monocytes % 8.2 %; Neutrophils # 3.9 K/mcL (1.6-8.9); Platelet Count 139 K/mcL (140-400); Red Blood Count 3.66 M/mcL (4.19-5.50); Red Cell Distribution Width 13.5 % (11.5-14.5); Segmented Neutrophils % 59.7 %; White Blood Count 6.6 K/mcL (4.3-11.1)
[2020-12-17 06:37] LABS: INR 1.1; Prothrombin Time 12.8 Seconds (9.4-12.1)
[2020-12-17 06:42] LABS: BUN/Creatinine Ratio 26 (6-26); Blood Urea Nitrogen 24 mg/dL (8-23); Calcium 9.4 mg/dL (8.6-10.3); Carbon Dioxide 29 mEq/L (23-29); Chloride 100 mEq/L (98-107); Glucose 108 mg/dL (70-105); Magnesium 1.8 mg/dL (1.6-2.6); Osmolality,Calculated 283 (280-300); Potassium 4.3 mEq/L (3.5-5.1); Sodium 134 mEq/L (136-145); eGFR For African Americans > 60 (> 60); eGFR For Non-African Americans > 60 (> 60)
[2020-12-17] MEDS: lisinopriL 5 MG TABLET PO SCH (08:43)
[2020-12-17] MEDS: Aspirin Enteric Coated 81 MG Tablet PO SCH (08:43)
[2020-12-17] MEDS: Metoprolol XL (24 HR) Succ 25 MG TAB.ER.24H PO SCH ×2 (08:43→08:53)
[2020-12-17] MEDS: Finasteride 5 MG TABLET PO SCH (08:44)
[2020-12-17] MEDS ORDERED: Regadenoson 0.4 MG/5 ML SYRINGE IVP ONE (09:53)
[2020-12-17 12:49] VITALS: TEMP 97.6
[2020-12-17 16:37] VITALS: BP 144/70; PULSE 64; O2SAT 97
== END 2020-12-17 17:03 | disposition home or self-care (01) ==
LOC: EMEROOARM 09:05 → 3BNU 09:05 → SUATTDRO 12:21 → 3BNU 12:52
PROVIDERS: ADMIT Internal Medicine; ATTEND Internal Medicine